=== PATIENT | female | born 1970 | race Caucasian/White ===

== ENCOUNTER → 2016-04-09 | Outpatient (CLI) | payer MEDICARE, OTHER ==
--- NOTE | 2016-04-09 15:46 | BD ---
EXAMINATION TYPE: MG DEXA axial skeleton. DATE OF EXAM: 04/09/2016 2:11 PM CLINICAL HISTORY: : no Height: 66 inches Weight: 205 FRAX RISK QUESTIONS: Alcohol (3 or more units per day): no Family History (Parent hip fracture): no Glucocorticoids (More than 3mos): seizure meds (Ex: prednisone, prednisolone, methylprednisolone, dexamethasone, and hydrocortisone). History of Fracture in Adulthood: no Secondary Osteoporosis: 1. Type 1 Diabetes: no 2. Hyperthyroidism: no 3. Menopause before 45: yes, surgical...about 2 years ago 4. Malnutrition: no 5. Chronic liver disease: no Rheumatoid Arthritis: no Current Tobacco Use: no RISK FACTORS HISTORY OF: History of Fracture: no Family History of Osteoporosis: unsure Drink Alcohol: no Active: yes Diet low in dairy products/other sources of calcium: no Postmenopausal woman: yes Take estrogen and/or progesterone medications: no Lost more than 2 inches in height since high school: no Frequent falls: no Poor Health: no Hyperparathyroidism: no Adrenal Insufficiency: no MEDICATIONS: Prednisone or other steroids: seizure meds Thyroid Medications: no Osteoporosis Medications: no Additional Medications: seizure meds, occasionally allergy meds EXAM MEASUREMENTS: Bone mineral densitometry was performed using the [employer] System. Bone mineral density as measured about the Lumbar spine is: ----- L1-L4(G/cm2): 1.215 T Score Values are as follows: ----- L2: -0.2 ----- L3: 0.2 ----- L4: 1.1 ----- L1-L4: 0.3 Bone mineral density has: Increased 2.9% since study of: 05/12/2013 Bone mineral density about the R hip (g/cm2): 0.768 Bone mineral density about the L hip (g/cm2): 0.811 T Score values are as follows: -----R Neck: -1.9 -----L Neck: -1.6 -----R Intertrochanter: -2.2 -----L Intertrochanter: -2.4 Bone mineral density has: remained the same 0.0% since study of: 05/12/2013 IMPRESSION: Normal (Values between +1 and -1 indicate normal bone mass) Lumbar Spine Osteopenia (T Score between -2.5 and -1 as noted by T score values Bilateral Hips There is slightly increased risk of fracture and the patient may be considered for treatment. Re-Screen 1-2 years. NOTE: T-SCORE=SD OF THE YOUNG ADULT MEAN.
== END | disposition home or self-care (01) ==
LOC: RADBDWWP 13:35
PROVIDERS: ATTEND Psychiatry & Neurology Neurology
DX: M85.80 Other specified disorders of bone density and structure, unspecified site (principal); T42.1X5A Adverse effect of iminostilbenes, initial encounter
CPT/HCPCS: 77080

== ENCOUNTER → 2016-06-12 | Outpatient (CLI) | payer MEDICARE, OTHER ==
--- NOTE | 2016-06-13 10:33 | XR ---
EXAMINATION TYPE: XR abdomen 1V DATE OF EXAM: 06/12/2016 3:57 PM COMPARISON: NONE HISTORY: Pain TECHNIQUE: Single supine KUB image of the abdomen is obtained FINDINGS: Small bowel demonstrates no evidence for dilatation or air fluid levels. Gas and fecal material is seen in non-distended colon. No convincing evidence for pneumoperitoneum. No unusual calcifications. The lung bases are clear. The osseous structures are intact. Curvature of the lumbar spine convex to the left. IMPRESSION: 1. Overall nonobstructive bowel gas pattern.
== END | disposition home or self-care (01) ==
LOC: RADXRYALE 15:10
PROVIDERS: ATTEND Family Medicine
DX: K59.00 Constipation, unspecified (principal); R10.31 Right lower quadrant pain
CPT/HCPCS: 74000

== ENCOUNTER 2016-06-15 12:13 | Emergency (ER) | payer MEDICARE, OTHER ==
--- NOTE | 2016-06-15 13:34 | ED ---
General Adult HPI - General Chief complaint: Abdominal Pain Stated complaint: Seizure Time Seen by Provider: 06/15/16 13:20 Source: patient, family, RN notes reviewed, old records reviewed Mode of arrival: ambulatory Limitations: no limitations - History of Present Illness Initial comments: Chief complaint and history of present illness a 45-year-old female here with the mother. The patient is mentally challenged and lives with her mother. Mother reports she's been having some abdominal pain for several days 2 days ago she had an x-ray as an outpatient. I reviewed the x-ray and the radiologist states that there is no overall nonobstructive bowel gas pattern. As read by Dr. Taylor. Mother states she gave her some mineral oil 2 nights ago and while in emergency room the patient had a large hard bowel movement. Patient reports is no pain now. - Related Data Home Medications Medication Instructions Recorded Confirmed LORazepam [Ativan] 1 mg PO Q6H PRN 06/15/16 06/15/16 Primidone [Mysoline] 250 mg PO BID 06/15/16 06/15/16 carBAMazepine [TEGretol XR] 400 mg PO Q12HR 06/15/16 06/15/16 levETIRAcetam [Keppra] 500 - 1,000 mg PO Q12HR 06/15/16 06/15/16 Allergies Allergy/AdvReac Type Severity Reaction Status Date / Time No Known Allergies Allergy Verified 06/15/16 13:21 Review of Systems ROS Statement: Those systems with pertinent positive or pertinent negative responses have been documented in the HPI. Review of systems patient's denying headache chest pain shows breath GI/ problems this time. At this time systems are reviewed no changes or problems. Past medical problems seizure disorder since he was a baby. Takes medications for that. History of hysterectomy. Family history no cancers. No apparent ALLERGIES patient nonsmoker nondrinker. ROS Other: All systems not noted in ROS Statement are negative. Past Medical History Past Medical History: Seizure Disorder History of Any Multi-Drug Resistant Organisms: None Reported Past Surgical History: Hysterectomy Past Psychological History: No Psychological Hx Reported Smoking Status: Never smoker Past Alcohol Use History: None Reported Past Drug Use History: None Reported General Exam - General Exam Comments Initial Comments: General: The patient is awake and alert, in no distress, and does not appear acutely ill. Not having abdominal pain at this time. She had a large bowel movement while in emergency room. Vital signs shows temperature 99.2 pulse 94 respiratory rate 16 pulse ox 90% room air blood pressure 125/78. Eye: Pupils are equal, round and reactive to light, extra-ocular movements are intact ; there is normal conjunctiva bilaterally. No signs of icterus. Ears, nose, mouth and throat: There are moist mucous membranes and no oral lesions. Neck: The neck is supple, there is no tenderness . Cardiovascular: There is a regular rate and rhythm. No murmur, rub or gallop is appreciated. Respiratory: Lungs are clear to auscultation, respirations are non-labored, breath sounds are equal. No wheezes, stridor, rales, or rhonchi. Gastrointestinal: Soft, non-distended, non-tender abdomen without masses or organomegaly noted. There is no rebound or guarding present. No CVA tenderness. Bowel sounds are unremarkable. Patient denies any abdominal pain at this time. She did have a large hard bowel movement while in emergency room. Back: Patient will flex twist and turn without evidence of discomfort no back pain. Musculoskeletal: Normal ROM, no tenderness, There is no pedal edema. There is no calf tenderness or swelling. Sensation intact. Pulses equal bilaterally 2+. Neurological: CN II-XII intact, There are no obvious motor or sensory deficits. Coordination appears grossly intact. Speech is normal. No neuro deficits noted. Patient does have a history of a seizure disorder. Her last seizure was many many years ago. Mother reports that she was a little irregular this morning with the patient reports she can here with her mother was saying. Skin: Skin is warm and dry and no rashes or lesions are noted. Limitations: no limitations Course Vital Signs 06/15/16 12:19 Temperature 99.2 F Pulse Rate 94 Respiratory 16 Rate Blood Pressure 125/78 O2 Sat by Pulse 98 Oximetry Medical Decision Making - Medical Decision Making Medical decision making; patient's urine is clean no signs of infection with 1 white 1 red. The patient be discharged home to care of mother. Mother was advised to use milk of magnesia to help with her bowel movements increase her fluid intake and bulky food type diet increase roughage. Advised follow-up with family physician return emergency room as needed. - Lab Data Lab Results 06/15/16 Range/Units 13:20 Urine Color Yellow Urine Appearance Cloudy H (Clear) Urine pH 6.5 (5.0-8.0) Ur Specific [place] 1.016 (1.001-1.035) Urine Protein Trace H (Negative) Urine Glucose (UA) Negative (Negative) Urine Ketones 2+ H (Negative) Urine Blood Negative (Negative) Urine Nitrite Negative (Negative) Urine Bilirubin Negative (Negative) Urine Urobilinogen <2.0 (<2.0) mg/dL Ur Leukocyte Esterase Negative (Negative) Urine RBC 1 (0-5) /hpf Urine WBC 1 (0-5) /hpf Ur Squamous Epith Cells 10 H (0-4) /hpf Urine Bacteria Few H (None) /hpf Urine Mucus Rare H (None) /hpf Disposition Clinical Impression: Abdominal cramping Disposition: HOME SELF-CARE Condition: Stable Instructions: Constipation (ED), High Fiber Diet (ED) Additional Instructions: Use milk of magnesia for constipation. Try to increase fluid intake. Increase roughage in diet. Follow-up with family physician Time of Disposition: 14:18
[2016-06-15 13:51] LABS: Appearance,Urine Cloudy (Clear); Bacteria,Urine Few /hpf; Bilirubin,Urine Negative (Negative); Glucose,Urine (UA) Negative (Negative); Ketones,Urine 2+ (Negative); Leukocyte Esterase,Urine Negative (Negative); Mucus,Urine Rare /hpf; Nitrite,Urine Negative (Negative); PH, Urine 6.5 (5.0-8.0); Particle Count 13756; Protein,Urine Trace (Negative); RBC,Urine 1 /hpf (0-5); Specific Gravity,Urine 1.016 (1.001-1.035); Squamous Epithelial Cell,Urine 10 /hpf (0-4); UA Billing (MACRO vs. MICRO) MICRO; Urobilinogen,Urine <2.0 mg/dL (<2.0); WBC,Urine 1 /hpf (0-5)
[2016-06-15 14:28] VITALS: BP 122/68; PULSE 78; RESP 20; TEMP 99
== END 2016-06-15 14:25 | disposition home or self-care (01) ==
LOC: EC 12:13
DX: R10.9 Unspecified abdominal pain (principal); G40.909 Epilepsy, unspecified, not intractable, without status epilepticus; Z90.710 Acquired absence of both cervix and uterus; Z79.899 Other long term (current) drug therapy
CPT/HCPCS: 81001; 87086; 99284

== ENCOUNTER 2016-06-16 16:57 | Inpatient (IN) | payer MEDICARE, OTHER ==
[2016-06-16] MEDS ORDERED: ONDANSETRON 4 MG/2 ML VIAL IVP STA (18:51)
[2016-06-16] MEDS ORDERED: SODIUM CHLORIDE 0.9% 1,000 ML IV STA (18:51)
[2016-06-16] MEDS ORDERED: FAMOTIDINE 20 MG/2 ML VIAL IV STA (18:51)
--- NOTE | 2016-06-16 19:01 | ED ---
General Adult HPI <Canelo Reece - Last Filed: 06/16/16 20:55> - General Source: patient, RN notes reviewed Mode of arrival: wheelchair Limitations: no limitations <Govind Shelton - Last Filed: 06/16/16 21:01> - General Chief complaint: Abdominal Pain Stated complaint: VOMITING Time Seen by Provider: 06/16/16 18:41 - History of Present Illness Initial comments: Patient 45 year old female who presents emergency room today with chief complaint of lower abdominal pain with symptoms of nausea vomiting. Patient does admit to one episode of vomiting yesterday. States expressing some lower abdominal cramping. Patient doesn't that she feels slightly better here in the emergency room. Patient does admit that symptoms started yesterday. Patient admits to history of seizures. Patient denies any other complaints or symptoms. Patient denies any recent fever, chills, shortness of breath, chest pain, back pain, abdominal pain, nausea or vomiting, numbness or tingling, dysuria or hematuria, constipation or diarrhea, headaches or visual changes, or any other complaints. (Govind Shelton) - Related Data Home Medications Medication Instructions Recorded Confirmed LORazepam [Ativan] 1 mg PO Q6H PRN 06/15/16 06/16/16 Primidone [Mysoline] 250 mg PO BID 06/15/16 06/16/16 carBAMazepine [TEGretol XR] 400 mg PO Q12HR 06/15/16 06/16/16 levETIRAcetam [Keppra] 500 - 1,000 mg PO Q12HR 06/15/16 06/16/16 Allergies Allergy/AdvReac Type Severity Reaction Status Date / Time No Known Allergies Allergy Verified 06/16/16 19:06 Review of Systems ROS Other: All systems not noted in ROS Statement are negative. <Canelo Reece - Last Filed: 06/16/16 20:55> ROS Other: All systems not noted in ROS Statement are negative. <Govind Shelton - Last Filed: 06/16/16 21:01> ROS Statement: Those systems with pertinent positive or pertinent negative responses have been documented in the HPI. Past Medical History Past Medical History: Seizure Disorder History of Any Multi-Drug Resistant Organisms: None Reported Past Surgical History: Hysterectomy Past Psychological History: No Psychological Hx Reported Smoking Status: Never smoker Past Alcohol Use History: None Reported Past Drug Use History: None Reported <Govind Shelton - Last Filed: 06/16/16 21:01> General Exam <Canelo Reece - Last Filed: 06/16/16 20:55> Limitations: no limitations <Govind Shelton - Last Filed: 06/16/16 21:01> - General Exam Comments Initial Comments: General: The patient is awake and alert, in no distress, and does not appear acutely ill. Eye: Pupils are equal, round and reactive to light, extra-ocular movements are intact. No nystagmus. There is normal conjunctiva bilaterally. No signs of icterus. Ears, nose, mouth and throat: There are moist mucous membranes and no oral lesions. Neck: The neck is supple, there is no tenderness or JVD. Cardiovascular: There is a regular rate and rhythm. No murmur, rub or gallop is appreciated. Respiratory: Lungs are clear to auscultation, respirations are non-labored, breath sounds are equal. No wheezes, stridor, rales, or rhonchi. Gastrointestinal: Soft, non-distended, non-tender abdomen without masses or organomegaly noted. There is no rebound or guarding present. No CVA tenderness. Bowel sounds are unremarkable. Musculoskeletal: Normal ROM, no tenderness. Strength 5/5. Sensation intact. Pulses equal bilaterally 2+. Neurological: A&O x 3. CN II-XII intact, There are no obvious motor or sensory deficits. Coordination appears grossly intact. Speech is normal. Skin: Skin is warm and dry and no rashes or lesions are noted. Psychiatric: Cooperative, appropriate mood & affect, normal judgment. (Govind Shelton) Medical Decision Making - Lab Data Result diagrams: 06/16/16 19:15 06/16/16 19:15 <Canelo Reece - Last Filed: 06/16/16 20:55> - Lab Data Result diagrams: 06/16/16 19:15 06/16/16 19:15 <Govind Shelton - Last Filed: 06/16/16 21:01> - Medical Decision Making The patient presents with abdominal discomfort persisting she, vomited once last night. The patient had x-rays that showed evidence of some air fluid levels. Patient had a CAT scan with IV and oral contrast which was interpreted as showing cholecystitis as well as an incarcerated right inguinal hernia causing a mechanical small bowel obstruction. The case was discussed with Dr. Cunningham on-call general surgeon. Medical clearance will be by Dr. Del Valle who was also notified. Dr. Reece (Canelo Reece) Patient's CT reviewed and does show a dilated gallbladder consistent with cholecystitis. Does show dilated small bowel with numerous air-fluid levels consistent with a distal mechanical small bowel obstruction. This appears to relate to incarcerated right inguinal hernia which appears to be a transition point as read by radiologist Dr. Castellon. Patient's labs reviewed does show 16 ,000 white count. Patient rested comfortably stretcher. He is been updated on the results will be admitted to consult surgery. (Govind Shelton) - Lab Data Lab Results 06/16/16 06/16/16 Range/Units 19:15 19:15 WBC 16.8 H (3.8-10.6) k/uL RBC 5.16 (3.80-5.40) m/uL Hgb 16.8 H (11.4-16.0) gm/dL Hct 49.7 H (34.0-46.0) % MCV 96.3 (80.0-100.0) fL MCH 32.7 (25.0-35.0) pg MCHC 33.9 (31.0-37.0) g/dL RDW 12.8 (11.5-15.5) % Plt Count 203 (150-450) k/uL Neutrophils % 86 % Lymphocytes % 6 % Monocytes % 6 % Eosinophils % 1 % Basophils % 0 % Neutrophils # 14.4 H (1.3-7.7) k/uL Lymphocytes # 1.0 (1.0-4.8) k/uL Monocytes # 1.0 (0-1.0) k/uL Eosinophils # 0.1 (0-0.7) k/uL Basophils # 0.0 (0-0.2) k/uL Sodium 138 (137-145) mmol/L Potassium 4.3 (3.5-5.1) mmol/L Chloride 90 L (98-107) mmol/L Carbon Dioxide 30 (22-30) mmol/L Anion Gap 18 mmol/L BUN 33 H (7-17) mg/dL Creatinine 1.16 H (0.52-1.04) mg/dL Est GFR (MDRD) Af Amer >60 (>60 ml/min/1.73 sqM) Est GFR (MDRD) Non-Af 50 (>60 ml/min/1.73 sqM) Glucose 122 H (74-99) mg/dL Calcium 10.0 (8.4-10.2) mg/dL Total Bilirubin 1.2 (0.2-1.3) mg/dL AST 24 (14-36) U/L ALT 23 (9-52) U/L Alkaline Phosphatase 97 (38-126) U/L Total Protein 8.0 (6.3-8.2) g/dL Albumin 4.6 (3.5-5.0) g/dL Amylase 36 (30-110) U/L Lipase 50 (23-300) U/L Disposition <Canelo Reece - Last Filed: 06/16/16 20:55> Time of Disposition: 21:00 <Govind Shelton - Last Filed: 06/16/16 21:01> Clinical Impression: SBO (small bowel obstruction), Incarcerated hernia, Cholecystitis Disposition: ADMITTED IP TO THIS [facility] Condition: Stable
[2016-06-16 19:29] LABS: Basophils % (A) 0 %; CH 33.2; CHCM 34.6; Eosinophils # (A) 0.1 k/uL (0-0.7); Eosinophils % (A) 1 %; HCT 49.7 % (34.0-46.0); HDW 2.17; HGB 16.8 gm/dL (11.4-16.0); Luc # (Auto) 0.17; Luc % (Auto) 1; Lymphocytes % (A) 6 %; MCH 32.7 pg (25.0-35.0); MCHC 33.9 g/dL (31.0-37.0); MCV 96.3 fL (80.0-100.0); Mean Platelet Volume 7.6; Monocytes % (A) 6 %; Neutrophils # (A) 14.4 k/uL (1.3-7.7); Neutrophils % (A) 86 %; RBC 5.16 m/uL (3.80-5.40); RDW 12.8 % (11.5-15.5); WBC 16.8 k/uL (3.8-10.6); WBC (Perox) 16.95
[2016-06-16 19:39] LABS: ALT 23 U/L (9-52); AST 24 U/L (14-36); Alkaline Phosphatase 97 U/L (38-126); Amylase 36 U/L (30-110); Anion Gap 18 mmol/L; Blood Urea Nitrogen 33 mg/dL (7-17); Carbon Dioxide 30 mmol/L (22-30); Chloride 90 mmol/L (98-107); Glucose 122 mg/dL (74-99); Non-African American GFR(MDRD) 50 (>60 ml/min/1.73 sqM); Potassium 4.3 mmol/L (3.5-5.1); Sodium 138 mmol/L (137-145); Total Bilirubin 1.2 mg/dL (0.2-1.3)
--- NOTE | 2016-06-16 19:39 | XR ---
EXAMINATION TYPE: XR KUB DATE OF EXAM: 06/16/2016 7:34 PM COMPARISON: 06/12/2016 HISTORY: Abdominal pain TECHNIQUE: 2 views FINDINGS: There are some intestinal air-fluid levels in the mid abdomen. There is no sign of free air . There is a relative lack of large bowel gas. Lung bases are clear of consolidation. IMPRESSION: There are some dilated small bowel loops with air-fluid levels consistent with a small ema wel mechanical obstruction or severe small bowel ileus. This appears new compared to last exam.
[2016-06-16] MEDS ORDERED: RX INFO: IV CONTRAST WAS GIVEN 1 EACH MISC MISCELLANE PRN (19:41)
[2016-06-16] MEDS ORDERED: LORazepam 2 MG/ML SYRINGE IV STA (19:51)
--- NOTE | 2016-06-16 20:36 | CT ---
EXAMINATION TYPE: CT abdomen pelvis w con DATE OF EXAM: 06/16/2016 8:11 PM COMPARISON: NONE HISTORY: Mid abdominal pain with constipation. CT DLP: 1175.40 mGycm Automated exposure control for dose reduction was used. TECHNIQUE: Helical acquisition of images was performed from the lung bases through the pelvis. CONTRAST: Performed without Oral Contrast and with IV Contrast, patient injected with 80 mL of Visipaque 320. FINDINGS: Lung bases are clear. There is no pleural effusion. Liver shows no focal defect. Gallbladder is dilat ed and measures 6.5 cm in diameter. There is no pancreatic mass. Spleen appears normal. There are rowena e dilated loops of small bowel throughout the abdomen. There is a right inguinal hernia that contains small bowel. This is probably the site of transition. There is incarceration. The large bowel is not dilated. There are some spondylotic changes in the lumbar spine with L4-5 disc space narrowing. There is no adrenal mass. Kidneys show satisfactory contrast opacification. There is no hydronephrosi s. The terminal ileum is not dilated. IMPRESSION: THERE IS A DILATED GALLBLADDER CONSISTENT WITH CHOLECYSTITIS. DILATED SMALL BOWEL WITH NUMEROUS AIR-FLUID LEVELS CONSISTENT WITH DISTAL MECHANICAL SMALL BOWEL OBST RUCTION . THIS APPEARS TO RELATE TO INCARCERATED RIGHT INGUINAL HERNIA WHICH APPEARS TO BE THE TRANSI TION POINT.
[2016-06-16] MEDS ORDERED: SODIUM CHLORIDE 0.9% 500 ML IV STA (20:48)
[2016-06-16] MEDS ORDERED: SODIUM CHLORIDE 0.9% 1,000 ML IV ONE (21:01)
[2016-06-16] MEDS ORDERED: ONDANSETRON 4 MG/2 ML VIAL IVP PRN (21:01)
[2016-06-16] MEDS ORDERED: NALOXONE 0.4 MG/ML 1 ML VIAL IV PRN (21:01)
[2016-06-16] MEDS ORDERED: LORazepam 2 MG/ML SYRINGE IV PRN (21:01)
[2016-06-16] MEDS ORDERED: carBAMazepine 400 MG TAB.ER.12H PO STA (21:13)
[2016-06-16] MEDS ORDERED: PRIMIDONE 250 MG TAB PO STA (21:13)
[2016-06-16] MEDS ORDERED: levETIRAcetam 500 MG TAB PO STA (21:14)
[2016-06-17 04:16] VITALS: BMI 32.3
[2016-06-17 08:21] LABS: ALT 27 U/L (9-52); AST 22 U/L (14-36); Alkaline Phosphatase 77 U/L (38-126); Anion Gap 16 mmol/L; Blood Urea Nitrogen 33 mg/dL (7-17); Carbon Dioxide 22 mmol/L (22-30); Chloride 99 mmol/L (98-107); Glucose 103 mg/dL (74-99); Non-African American GFR(MDRD) >60 (>60 ml/min/1.73 sqM); Potassium 3.8 mmol/L (3.5-5.1); Sodium 137 mmol/L (137-145); Total Bilirubin 1.1 mg/dL (0.2-1.3); Total Protein 6.8 g/dL (6.3-8.2)
[2016-06-17 08:26] LABS: Basophils % (A) 0 %; CH 33.1; CHCM 34.3; Eosinophils % (A) 0 %; HCT 44.3 % (34.0-46.0); HDW 2.13; HGB 14.9 gm/dL (11.4-16.0); Luc # (Auto) 0.22; Luc % (Auto) 2; Lymphocytes % (A) 8 %; MCH 32.6 pg (25.0-35.0); MCHC 33.6 g/dL (31.0-37.0); Mean Platelet Volume 7.9; Monocytes # (A) 0.9 k/uL (0-1.0); Monocytes % (A) 7 %; Neutrophils # (A) 10.7 k/uL (1.3-7.7); Neutrophils % (A) 83 %; RBC 4.56 m/uL (3.80-5.40); RDW 12.9 % (11.5-15.5); WBC 12.8 k/uL (3.8-10.6); WBC (Perox) 12.88
--- NOTE | 2016-06-17 14:11 | XR ---
EXAMINATION TYPE: XR chest 1V portable DATE OF EXAM: 06/17/2016 1:50 PM CLINICAL HISTORY: CHF, difficulty in breathing. TECHNIQUE: Single AP portable frontal upright view of the chest is obtained. COMPARISON: None FINDINGS: Somewhat low lung volumes are seen. Mild central vascular congestion is felt present. Ther e is no focal air space opacity, pleural effusion, or pneumothorax seen. The cardiac silhouette size is within normal limits. The osseous structures are intact. IMPRESSION: Perhaps mild central vascular congestion. No suspicious focal infiltrate.
--- NOTE | 2016-06-17 14:22 | P.GSCN ---
<Zulma Olmstead Piotr - Last Filed: 06/17/16 14:13> History of Present Illness Consult date: 06/17/16 Reason for Consult: Abdominal pain History of present illness: A 45-year-old female presented on the day of admission to the emergency room on June 16 with a chief complaint of developing lower abdominal pain with a sensation of nausea with emesis. Patient states she did vomit once before coming into the emergency room. Patient stated there was a lower abdominal cramping sensation. Patient stated the symptoms started the day before. Patient states she has not had a bowel movement is not passing gas to the rectum is not belching. Did note the white count was elevated in the emergency room 16.8. CAT scan of the abdomen pelvis with IV and oral contrast was obtained did show cholecystitis as well as an incarcerated right inguinal hernia causing a mechanical small bowel obstruction. Patient is being seen at the request of the attending for surgical eval for the above-mentioned findings. Subsequently the patient has been admitted to the services of the attending with a surgical eval request. Dr. Cunningham did discuss with the patient and the patient's family the plan of care patient will need a surgical intervention to address the incarcerated right inguinal hernia and keep patient on bowel rest with IV hydration questions were answered. They were able to verbalize an understanding of the plan of care. Patient continues to report having abdominal discomfort in the right lower abdominal wall patient has no significant past surgical history except for a hysterectomy Review of Systems Essentially unremarkable except as mentioned in the present illness Past Medical History Past Medical History: Seizure Disorder Additional Past Medical History / Comment(s): mentally handicapped History of Any Multi-Drug Resistant Organisms: None Reported Past Surgical History: Hysterectomy Past Anesthesia/Blood Transfusion Reactions: No Reported Reaction Past Psychological History: No Psychological Hx Reported Smoking Status: Never smoker Past Alcohol Use History: None Reported Past Drug Use History: None Reported - Past Family History Mother Family Medical History: No Reported History Medications and Allergies Home Medications Medication Instructions Recorded Confirmed Type RX: LORazepam [Ativan] 1 mg PO Q6H PRN 06/15/16 06/16/16 History RX: Primidone [Mysoline] 250 mg PO BID 06/15/16 06/16/16 History RX: carBAMazepine [TEGretol XR] 400 mg PO Q12HR 06/15/16 06/16/16 History RX: levETIRAcetam [Keppra] 500 - 1,000 mg PO Q12HR 06/15/16 06/16/16 History Allergies Allergy/AdvReac Type Severity Reaction Status Date / Time No Known Allergies Allergy Verified 06/16/16 19:06 Surgical - Exam Vital Signs Temp Pulse Resp BP Pulse Ox 98.3 F 104 H 18 117/77 96 06/16/16 17:44 06/16/16 17:44 06/16/16 17:44 06/16/16 17:44 06/16/16 17:44 GENERAL APPEARANCE: 45-year-old female patient is alert, oriented, in no acute distress. Sitting up in bed VITAL SIGNS: Reviewed HEENT: Head is normocephalic and atraumatic. Pupils are equal and reactive. The nares are patent. Oropharynx is clear without lesions. NECK: Supple without lymphadenopathy. Traches midline. HEART: S1, S2. Regular rate and rhythm. Denying chest pain no murmur LUNGS: No crackles or wheezes are heard. Essentially clear adequate air movement on room air no cough noted ABDOMEN: Soft, slight tenderness, nondistended with good bowel sounds. No peritoneal signs. No palpable organomegaly or masses. Bowel tones present not passing any rectal gas or flatus is not belching remains nothing by mouth EXTREMITIES: Normal skin color and turgor. No cyanosis, rash, ulceration, clubbing or edema. Radial pedal pulses are 2/4 bilaterally. NEUROLOGICAL: No focal deficits. Strength and sensation are grossly intact. Results - Labs 06/17/16 07:06 06/17/16 07:06 Abnormal Lab Results - Last 24 Hours (Table) 06/17/16 06/17/16 Range/Units 07:06 07:06 WBC 12.8 H (3.8-10.6) k/uL Neutrophils # 10.7 H (1.3-7.7) k/uL BUN 33 H (7-17) mg/dL Glucose 103 H (74-99) mg/dL Diabetes panel 06/17/16 Range/Units 07:06 Sodium 137 (137-145) mmol/L Potassium 3.8 (3.5-5.1) mmol/L Chloride 99 (98-107) mmol/L Carbon Dioxide 22 (22-30) mmol/L BUN 33 H (7-17) mg/dL Creatinine 0.77 (0.52-1.04) mg/dL Glucose 103 H (74-99) mg/dL Calcium 9.0 (8.4-10.2) mg/dL AST 22 (14-36) U/L ALT 27 (9-52) U/L Alkaline Phosphatase 77 (38-126) U/L Total Protein 6.8 (6.3-8.2) g/dL Albumin 3.7 (3.5-5.0) g/dL Calcium panel 06/17/16 Range/Units 07:06 Calcium 9.0 (8.4-10.2) mg/dL Albumin 3.7 (3.5-5.0) g/dL Pituitary panel 06/17/16 Range/Units 07:06 Sodium 137 (137-145) mmol/L Potassium 3.8 (3.5-5.1) mmol/L Chloride 99 (98-107) mmol/L Carbon Dioxide 22 (22-30) mmol/L BUN 33 H (7-17) mg/dL Creatinine 0.77 (0.52-1.04) mg/dL Glucose 103 H (74-99) mg/dL Calcium 9.0 (8.4-10.2) mg/dL Adrenal panel 06/17/16 Range/Units 07:06 Sodium 137 (137-145) mmol/L Potassium 3.8 (3.5-5.1) mmol/L Chloride 99 (98-107) mmol/L Carbon Dioxide 22 (22-30) mmol/L BUN 33 H (7-17) mg/dL Creatinine 0.77 (0.52-1.04) mg/dL Glucose 103 H (74-99) mg/dL Calcium 9.0 (8.4-10.2) mg/dL Total Bilirubin 1.1 (0.2-1.3) mg/dL AST 22 (14-36) U/L ALT 27 (9-52) U/L Alkaline Phosphatase 77 (38-126) U/L Total Protein 6.8 (6.3-8.2) g/dL Albumin 3.7 (3.5-5.0) g/dL Assessment and Plan Plan: Impression Present on admission right lower abdominal pain with a sensation of nausea suspect due to incarcerated right inguinal hernia causing a mechanical small bowel obstruction Present on admission CAT scan of the abdomen pelvis with IV and oral contrast shows cholecystitis Present on admission CAT scan of the abdomen pelvis with IV and oral contrast shows a incarcerated right inguinal hernia causing a mechanical small bowel obstruction History of a seizure disorder Present on admission leukocytosis the low-grade temp Plan Continue IV hydration Surgical approach to address incarcerated right inguinal hernia defer to the timing by surgical service Bowel rest keep nothing by mouth Cholecystitis will be addressed in the outpatient setting DVT and GI prophylaxis Pain control The surgical plan of care was discussed with the patient and family with the surgeon with questions answered Thank you for allowing us to participate in the surgical management of your patient will follow The above dictated assessment and findings were discussed with dr Cunningham. Impression and the plan of care have been dictated as directed. Zulma Olmstead nurse practitioner acting as a scribe for Marisa <Lynda Cunningham N - Last Filed: 07/20/16 19:14> Surgical - Exam Vital Signs Temp Pulse Resp BP Pulse Ox 98.3 F 104 H 18 117/77 96 06/16/16 17:44 06/16/16 17:44 06/16/16 17:44 06/16/16 17:44 06/16/16 17:44 Results - Labs 06/25/16 08:31 06/25/16 08:31 Assessment and Plan (1) Inguinal hernia with strangulation Status: Acute (2) S/P small bowel resection Status: Acute (3) S/P inguinal hernia repair Status: Acute (4) Incarcerated hernia Status: Acute (5) SBO (small bowel obstruction) Status: Acute (6) History of seizures Status: Chronic Plan: Agree with above.
[2016-06-17] MEDS: levETIRAcetam IV 500 MG in SODIUM CHLORIDE 0.9% 100 ML IVPB SCH ×2 (15:49→22:22)
[2016-06-17] MEDS: HEPARIN SODIUM,PORCINE 5,000 UNIT/ML 1 ML VIAL SQ SCH (15:50)
[2016-06-17] MEDS: SODIUM CHLORIDE 0.9% 1,000 ML IV SCH (15:50)
[2016-06-17] MEDS: FAMOTIDINE 20 MG/2 ML VIAL IV SCH ×2 (15:50→22:24)
[2016-06-17] MEDS: LEVOFLOXACIN 500MG-D5W PMX 500 MG in DEXTROSE/WATER 1 100ML.BAG IVPB SCH (17:12)
--- NOTE | 2016-06-17 18:28 | HP ---
DATE OF ADMISSION: 06/16/2016 CHIEF COMPLAINT: Abdominal discomfort and constipation and vomiting. HISTORY OF PRESENT ILLNESS: This 45-year-old woman with a past history of seizure disorder, history of mentally handicapped being followed by Dr. Joseph Shin in the outpatient setting previously had a hysterectomy for apparent cancer. The patient presented to [facility] with complaints of abdominal pain and nausea and vomiting. The patient also constipated. The patient also vomiting. The patient had a CAT scan of the abdomen and pelvis at the time of admission showed dilated gallbladder consistent with cholecystitis and as well as dilated small bowel with numerous air fluid levels consistent with distal mechanical obstruction, small bowel obstruction which is probably related to incarcerated right inguinal hernia which appears to be the transition point. The patient admitted for further evaluation. Currently the patient is alert but unable to give coherent history and most of the history taken from my discussion with staff as well as discussion with the family at the bedside and review of the chart. No history of trauma. PAST MEDICAL HISTORY: History of seizure disorder and mentally handicapped, hysterectomy. MEDICATIONS: 1. Keppra 500 or 1000 b.i.d. 2. Tegretol-XL 400 mg b.i.d. 3. Mysoline 250 mg daily. 4. Ativan 1 mg q6h p.r.n. ALLERGIES: None. FAMILY HISTORY: No history of heart disease or strokes in the family per chart. SOCIAL HISTORY: No history of smoking. No history of alcohol. Review of systems could not be taken. PHYSICAL EXAMINATION: Pulse is 88, blood pressure 127/62, respiratory rate 16, temperature 97.5, pulse ox 93% on room air. HEENT: Conjunctivae normal. Oral mucosa moist. NECK: No jugular venous distention. No carotid bruit. No lymph node enlargement. CARDIOVASCULAR: S1, S2 muffled. No S3, no S4. RESPIRATORY: Breath sounds diminished at the bases. No rhonchi. No crackles. No bronchial sounds. ABDOMEN: Soft. Mild diffuse distention. Mild diffuse tenderness on palpation. No guarding or rigidity. Bowel sounds diminished. No ascites. No mass palpable. No bruits. LEGS: No edema. No swelling. CENTRAL NERVOUS SYSTEM: Higher functions as mentioned earlier. Otherwise moves all 4 limbs, unable to cooperative with a full neurologic exam. SKIN: No ulcer, rash or bleeding. LYMPHATICS: No lymph nodes palpable in the neck, axillae or groin. Joints: No active deforming arthropathy. Labs: WBC 16.2, hemoglobin 16.8. Creatinine is 1.16. Glucose 22. ASSESSMENT: 1. Abdominal distention, constipation, vomiting, possibly acute small bowel obstruction secondary to incarcerated right inguinal hernia. 2. Dilated gallbladder rule out acute cholecystitis. 3. Increased WBC. 4. Dehydration with acute renal failure, mild with prerenal factors present on admission. 5. Increased random blood sugar. 6. History of hysterectomy for uterine cancer. 7. History of seizure disorder. 8. Mentally challenged. 9. CODE STATUS: FULL CODE. RECOMMENDATIONS AND DISCUSSION: In this 46-year-old woman who presented with multiple complex medical issues, we will monitor the patient closely. Continue the current medications and continue symptomatic treatment. We will obtain a surgical consultation for continued monitoring and definite intervention. Dr. Cunningham has been consulted. Otherwise, would recommend resuming the previous medication while the patient is p.o. otherwise, IV medication will be substituted. Ativan p.r.n. may be used. DVT prophylaxis. Empiric antibiotics also will be given. Cultures are ordered. Prognosis guarded because of multiple complex medical issues. Discussed with the family. Further recommendations to follow. A copy of dictation being forwarded to Dr. Shin who is the primary care physician.
[2016-06-17] MEDS ORDERED: carBAMazepine 400 MG TAB.ER.12H PO SCH (21:00)
[2016-06-17] MEDS ORDERED: levETIRAcetam 500 MG TAB PO SCH (21:00)
[2016-06-17] MEDS: LORazepam 2 MG/ML SYRINGE IV PRN (23:50)
[2016-06-18] MEDS: PRIMIDONE 250 MG TAB PO SCH ×3 (00:08→22:43)
[2016-06-18] MEDS: carBAMazepine 200 MG TAB PO SCH ×5 (00:08→22:43)
[2016-06-18] MEDS: HEPARIN SODIUM,PORCINE 5,000 UNIT/ML 1 ML VIAL SQ SCH ×4 (00:09→23:38)
[2016-06-18] MEDS: HYDROmorphone 1 MG/ML 1 ML SYRINGE IV PRN ×4 (02:51→23:38)
[2016-06-18] MEDS: SODIUM CHLORIDE 0.9% 1,000 ML IV SCH ×4 (05:51→10:50)
--- NOTE | 2016-06-18 07:24 | P.PN ---
Progress Note - Text Patient re-evaluated this evening. Please see full dictated consultation. Nasogastric tube decompression recommended given severity of bowel obstruction. We'll need surgical intervention pending cardiac risk assessment.
[2016-06-18 08:30] LABS: Basophils % (A) 0 %; CH 32.8; CHCM 34.8; Eosinophils % (A) 0 %; HCT 39.6 % (34.0-46.0); HDW 2.24; HGB 13.6 gm/dL (11.4-16.0); Luc # (Auto) 0.26; Luc % (Auto) 3; Lymphocytes # (A) 1.2 k/uL (1.0-4.8); Lymphocytes % (A) 14 %; MCH 32.5 pg (25.0-35.0); MCHC 34.3 g/dL (31.0-37.0); MCV 94.6 fL (80.0-100.0); Mean Platelet Volume 7.9; Monocytes # (A) 0.7 k/uL (0-1.0); Monocytes % (A) 9 %; Neutrophils # (A) 6.4 k/uL (1.3-7.7); Neutrophils % (A) 74 %; RBC 4.18 m/uL (3.80-5.40); RDW 12.8 % (11.5-15.5); WBC 8.7 k/uL (3.8-10.6)
[2016-06-18] MEDS: levETIRAcetam IV 500 MG in SODIUM CHLORIDE 0.9% 100 ML IVPB SCH (08:33)
[2016-06-18] MEDS: FAMOTIDINE 20 MG/2 ML VIAL IV SCH ×2 (08:34→20:08)
[2016-06-18 08:51] LABS: Anion Gap 16 mmol/L; Blood Urea Nitrogen 26 mg/dL (7-17); Calcium 8.5 mg/dL (8.4-10.2); Carbon Dioxide 20 mmol/L (22-30); Chloride 105 mmol/L (98-107); Glucose 72 mg/dL (74-99); Non-African American GFR(MDRD) >60 (>60 ml/min/1.73 sqM); Potassium 3.4 mmol/L (3.5-5.1); Sodium 141 mmol/L (137-145)
[2016-06-18] MEDS: LEVOFLOXACIN 500MG-D5W PMX 500 MG in DEXTROSE/WATER 1 100ML.BAG IVPB SCH (12:51)
[2016-06-18 13:07] LABS: Appearance,Urine Cloudy (Clear); Bacteria,Urine Occasional /hpf; Bilirubin,Urine 1+ (Negative); Glucose,Urine (UA) Negative (Negative); Ketones,Urine 4+ (Negative); Leukocyte Esterase,Urine Negative (Negative); Mucus,Urine Rare /hpf; Nitrite,Urine Negative (Negative); Particle Count 15851; Protein,Urine 1+ (Negative); RBC,Urine 3 /hpf (0-5); Specific Gravity,Urine 1.031 (1.001-1.035); Squamous Epithelial Cell,Urine 5 /hpf (0-4); UA Billing (MACRO vs. MICRO) MICRO; WBC,Urine 5 /hpf (0-5)
--- NOTE | 2016-06-18 15:20 | XR ---
EXAMINATION TYPE: XR abdomen 1V DATE OF EXAM: 06/18/2016 1:29 PM CLINICAL DATA: 45-year-old female bowel obstruction, follow-up, [facility] COMPARISON: 06/16/2016 FINDINGS: NG tube remains in place. No evidence for free intraperitoneal air. Redemonstrated differential air-fluid levels with dilated small bowel loops measuring up to 4.[address] amount of scattered colonic gas is present, not significantly changed from prior. IMPRESSION: Findings suggest continued high-grade small bowel obstruction. No free air. Query any interval reduct ion of the patient's right inguinal hernia.
--- NOTE | 2016-06-18 16:25 | P.PN ---
Subjective 45 -year-old female being seen with the attending this morning. Dr. Cunningham did discuss the surgical plan of care with the mother at the bedside as well as the patient. Questions answered. Patient did undergo a x-ray of the abdomen this morning it's suggest dilated small bowel loops suspect high-grade small bowel obstruction no free air. A 12-lead EKG has been requested. Surgery is tentatively scheduled for June 20 pending cardiac clearance Objective - Vital Signs Vital signs: Vital Signs Temp 98.2 F 06/18/16 07:00 Pulse 97 06/18/16 15:27 Resp 16 06/18/16 15:27 BP 125/80 06/18/16 07:00 Pulse Ox 92 L 06/18/16 07:00 Intake & Output 06/17/16 06/18/16 06/18/16 18:59 06:59 18:59 Intake Total 1200 Output Total 550 1350 1800 Balance 650 -1350 -1800 Weight 90.718 kg 90.718 kg Intake: Intake, IV Titration 1200 Amount Levofloxacin 500Mg-D5w 100 Pmx 500 mg In Dextrose/ Water 1 100ml.bag @ 100 mls/hr IVPB Q24H JACY Rx#: [id number] Sodium Chloride 0.9% 1, 700 000 ml @ 100 mls/hr IV . Q10H JACY Rx#:[id number] levETIRAcetam IV 500 mg 400 In Sodium Chloride 0.9% 100 ml @ 400 mls/hr IVPB Q12HR JACY Rx#:[id number] Output: Gastric Drainage 1350 Urine 550 1800 Other: # Voids 2 2 - Exam Physical exam 45-year-old female sitting up in bed mother at bedside no new events pleasant cooperative oriented 3 Lungs essentially clear adequate air movement Heart S1-S2 audible regular Abdomen nasogastric tube in place soft slight tenderness persist bowel tones present passing any gas no stool reports having slight abdominal discomfort not distended Extremities no edema noted - Labs CBC & Chem 7: 06/18/16 07:58 06/18/16 07:58 Labs: Abnormal Lab Results - Last 24 Hours (Table) 06/18/16 06/18/16 Range/Units 07:58 12:15 Potassium 3.4 L (3.5-5.1) mmol/L Carbon Dioxide 20 L (22-30) mmol/L BUN 26 H (7-17) mg/dL Glucose 72 L (74-99) mg/dL Urine Appearance Cloudy H (Clear) Urine Protein 1+ H (Negative) Urine Ketones 4+ H (Negative) Urine Bilirubin 1+ H (Negative) Ur Squamous Epith Cells 5 H (0-4) /hpf Urine Bacteria Occasional H (None) /hpf Urine Mucus Rare H (None) /hpf Assessment and Plan Plan: Impression Present on admission right lower abdominal pain with a sensation of nausea suspect due to incarcerated right inguinal hernia causing a mechanical small bowel obstruction Present on admission CAT scan of the abdomen pelvis with IV and oral contrast shows cholecystitis Present on admission CAT scan of the abdomen pelvis with IV and oral contrast shows a incarcerated right inguinal hernia causing a mechanical small bowel obstruction History of a seizure disorder Present on admission leukocytosis the low-grade temp Abdominal x-ray on the fourth suggest high-grade small bowel obstruction no free air Plan Check the 12-lead EKG Continue IV hydration Surgical approach to address incarcerated right inguinal hernia defer to the timing by surgical service Bowel rest keep nothing by mouth Cholecystitis will be addressed in the outpatient setting DVT and GI prophylaxis Pain control The surgical plan of care was discussed with the patient and family with the surgeon with questions answered Surgery tentatively scheduled for June 20 Thank you for allowing us to participate in the surgical management of your patient will follow The above dictated assessment and findings were discussed with dr Cunningham. Impression and the plan of care have been dictated as directed. Zulma Olmstead nurse practitioner acting as a scribe for Marisa
--- NOTE | 2016-06-18 18:24 | PN ---
DATE OF SERVICE: 06/18/2016 This 45-year-old woman was admitted with abdominal distention and constipation with features of acute small bowel obstruction secondary to right inguinal hernia, also had dilated gallbladder. Patient has NG tube. Surgery is following the patient closely at this time. Otherwise, a baseline chest x-ray showed no suspicious focal infiltrate. Patient is complaining of dry mouth. The patient is mentally challenged. Most of history taken through my discussion with staff, review of the chart and as well as discussion with multiple family members at the bedside. PAST MEDICAL HISTORY: Reviewed. Current medications are: 1. Tegretol 200 mg p.o. daily. 2. Pepcid 20 mg IV b.i.d. 3. Heparin 5000 subcu daily. 4. Dilaudid 1 mg q.2 p.r.n. 5. Keppra 500 mg IV b.i.d. 6. Levaquin 500 mg daily. 7. Ativan 0.5 q.6 p.r.n. 8. Narcan. 9. Zofran. 10. Mysoline. PHYSICAL EXAMINATION: Pulse is 97, blood pressure 125/80, respiratory rate 16, temperature 98.2, pulse ox 92% on room air. HEENT: Conjunctivae normal. Oral mucosa moist. NECK: No jugular venous distention. No carotid bruit. No lymph node enlargement. CARDIOVASCULAR: S1 and S2, muffled. No S3, no S4. RESPIRATORY: Breath sounds diminished at the bases. No rhonchi, no crackles. ABDOMEN: Soft. Mild diffuse distention. Mild diffuse discomfort on palpation, no guarding. No rigidity. No mass palpable. No ascites. Bowel sounds diminished. LEGS: No edema, no swelling. NERVOUS SYSTEM: No focal deficits. LABS: WBC 8.3, hemoglobin 13.7. Sodium is 140, potassium 3.4. UA noted. ASSESSMENT: 1. Abdominal distention, constipation, vomiting and as well as acute small bowel obstruction, possibly secondary to incarcerated right inguinal hernia. 2. Dilated gallbladder, rule out acute cholecystitis. 3. Increased WBC. 4. Dehydration with acute renal failure, possibly prerenal factors present on admission. 5. Increased random blood sugar. 6. History of hysterectomy uterine cancer. 7. History of seizure disorder. 8. Mentally challenged. 9. CODE STATUS: FULL CODE. RECOMMENDATIONS AND DISCUSSION: This 45-year-old woman who presented with multiple complex medical issues, we will monitor the patient closely. Continue with current medications, continue with NG tube. Closely follow with Surgery. DVT prophylaxis and symptomatic treatment. Empiric antibiotics have been initiated. Otherwise, continue to monitor. Continue with IV Keppra and further recommendations. Will use p.r.n. Ativan. Prognosis guarded. Closely follow with Surgery. Discussed with the family who understands and agrees. Further recommendations to follow.
--- NOTE | 2016-06-18 19:21 | P.CNNES ---
History of Present Illness Consult date: 06/18/16 History of Present Illness: The patient is a 45-year-old mentally handicapped woman with epilepsy. History is obtained from the chart and from her mother was at the bedside. The patient has had seizures since the age of 6. She has been on Tegretol and Mysoline since that time. Her mother reports that she has a seizure about once a year. The seizures are apparently partial loss of awareness. The patient is admitted to the hospital with bowel obstruction. She had complaints of abdominal pain nausea and vomiting. CAT scan of the abdomen showed cholecystitis as well as dilated small bowel. He is scheduled for surgery in 48 hours. Her Tegretol and her Mysoline have been kept on hold because she cannot take any oral intake. He has also been taking Keppra recently at home in the hopes of switching her from Tegretol and Mysoline onto Keppra. Review of Systems ROS unobtainable: due to mental status Past Medical History Past Medical History: Seizure Disorder Additional Past Medical History / Comment(s): mentally handicapped History of Any Multi-Drug Resistant Organisms: None Reported Past Surgical History: Hysterectomy Past Anesthesia/Blood Transfusion Reactions: No Reported Reaction Past Psychological History: No Psychological Hx Reported Smoking Status: Never smoker Past Alcohol Use History: None Reported Past Drug Use History: None Reported - Past Family History Mother Family Medical History: No Reported History Medications and Allergies Home Medications Medication Instructions Recorded Confirmed Type LORazepam [Ativan] 1 mg PO Q6H PRN 06/15/16 06/16/16 History Primidone [Mysoline] 250 mg PO BID 06/15/16 06/16/16 History carBAMazepine [TEGretol XR] 400 mg PO Q12HR 06/15/16 06/16/16 History levETIRAcetam [Keppra] 500 - 1,000 mg PO Q12HR 06/15/16 06/16/16 History Allergies Allergy/AdvReac Type Severity Reaction Status Date / Time No Known Allergies Allergy Verified 06/16/16 19:06 Physical Examination - Vital Signs Vital Signs: Vital Signs Temp Pulse Resp BP Pulse Ox 06/18/16 15:27 97 16 06/18/16 15:00 98.6 F 93 16 118/77 93 L 06/18/16 08:00 97 16 06/18/16 07:00 98.2 F 97 16 125/80 92 L 06/17/16 22:28 98.8 F 103 H 16 122/77 91 L 06/17/16 22:00 98.9 F 86 16 122/75 98 Intake and Output 06/18/16 06/18/16 06/18/16 06:59 14:59 22:59 Output Total 900 900 Balance -900 -900 Output: Urine 900 900 Other: # Voids 2 2 Weight 90.718 kg Patient Weight 06/19/16 06:59 Weight 90.718 kg - Constitutional General appearance: average body habitus - EENT EENT: PERRL, vision intact - Respiratory Respiratory: lungs clear - Cardiovascular Cardiovascular: regular rate, normal S1, normal S2 - Neurologic Mental status she was awake she was able to answer simple questions she did have moderate impairment of cognitive function. Cranial nerve examination: EOMI, VFF, V1/V2/V3 grossly intact, face symmetric, tongue midline Speech examination: intact Sensorimotor examination: intact Detailed motor examination: grossly full strength in all extremities - Psychiatric Psychiatric: cooperative Results - Laboratory Findings CBC and BMP: 06/18/16 07:58 06/18/16 07:58 Abnormal Lab Findings: Abnormal Labs 06/17/16 06/17/16 06/18/16 07:06 07:06 07:58 WBC 12.8 H Neutrophils # 10.7 H Potassium 3.4 L Carbon Dioxide 20 L BUN 33 H 26 H Glucose 103 H 72 L Urine Appearance Urine Protein Urine Ketones Urine Bilirubin Ur Squamous Epith Cells Urine Bacteria Urine Mucus 06/18/16 12:15 WBC Neutrophils # Potassium Carbon Dioxide BUN Glucose Urine Appearance Cloudy H Urine Protein 1+ H Urine Ketones 4+ H Urine Bilirubin 1+ H Ur Squamous Epith Cells 5 H Urine Bacteria Occasional H Urine Mucus Rare H Assessment and Plan (1) Cholecystitis Status: Acute Code(s): K81.9 - CHOLECYSTITIS, UNSPECIFIED (2) SBO (small bowel obstruction) Status: Acute Code(s): K56.69 - OTHER INTESTINAL OBSTRUCTION (3) History of seizures Status: Chronic Code(s): Z87.898 - PERSONAL HISTORY OF OTHER SPECIFIED CONDITIONS Plan: The patient is a 46-year-old woman who was mentally handicapped and has a history of seizure disorder. She has been on Tegretol and Mysoline for numerous years. Recently she was also started on Keppra in the hopes of taking her off Mysoline and Tegretol. The patient is admitted to the hospital with small bowel obstruction and cholecystitis. She will be having surgery in 2 days. She can take nothing by mouth and cannot take her Tegretol or Mysoline. Recommend increasing Keppra dose to 1000 mg every 12 IV piggyback and we will check Keppra level in a.m. and adjust accordingly.
[2016-06-18] MEDS: levETIRAcetam IV 1,000 MG in SODIUM CHLORIDE 0.9% 100 ML IVPB SCH ×2 (20:09→23:10)
[2016-06-19] MEDS: LORazepam 2 MG/ML SYRINGE IV PRN (00:29)
[2016-06-19] MEDS: SODIUM CHLORIDE 0.9% 1,000 ML IV SCH ×3 (06:00→16:52)
[2016-06-19] MEDS ORDERED: levETIRAcetam IV 1,000 MG in SODIUM CHLORIDE 0.9% 100 ML IVPB SCH (09:00)
[2016-06-19 09:06] LABS: Basophils % (A) 0 %; CH 31.9; CHCM 32.6; Eosinophils % (A) 0 %; HCT 38.9 % (34.0-46.0); HDW 2.32; HGB 12.7 gm/dL (11.4-16.0); Luc # (Auto) 0.16; Luc % (Auto) 2; Lymphocytes # (A) 0.7 k/uL (1.0-4.8); Lymphocytes % (A) 10 %; MCH 32.2 pg (25.0-35.0); MCHC 32.8 g/dL (31.0-37.0); MCV 98.3 fL (80.0-100.0); Mean Platelet Volume 7.3; Monocytes # (A) 0.6 k/uL (0-1.0); Monocytes % (A) 9 %; Neutrophils # (A) 5.4 k/uL (1.3-7.7); Neutrophils % (A) 79 %; RBC 3.95 m/uL (3.80-5.40); RDW 12.5 % (11.5-15.5); WBC 6.8 k/uL (3.8-10.6); WBC (Perox) 7.56
[2016-06-19] MEDS: PRIMIDONE 250 MG TAB PO SCH ×2 (09:09→22:18)
[2016-06-19] MEDS: carBAMazepine 200 MG TAB PO SCH ×4 (09:09→23:44)
[2016-06-19] MEDS: HEPARIN SODIUM,PORCINE 5,000 UNIT/ML 1 ML VIAL SQ SCH ×2 (09:11→15:17)
[2016-06-19] MEDS: FAMOTIDINE 20 MG/2 ML VIAL IV SCH ×2 (09:11→21:39)
[2016-06-19 09:19] LABS: Anion Gap 18 mmol/L; Blood Urea Nitrogen 18 mg/dL (7-17); Calcium 8.6 mg/dL (8.4-10.2); Carbon Dioxide 15 mmol/L (22-30); Chloride 112 mmol/L (98-107); Glucose 70 mg/dL (74-99); Non-African American GFR(MDRD) >60 (>60 ml/min/1.73 sqM); Potassium 3.4 mmol/L (3.5-5.1); Sodium 145 mmol/L (137-145)
[2016-06-19] MEDS: LEVOFLOXACIN 500MG-D5W PMX 500 MG in DEXTROSE/WATER 1 100ML.BAG IVPB SCH (15:08)
[2016-06-19] MEDS: HYDROmorphone 1 MG/ML 1 ML SYRINGE IV PRN ×2 (15:09→20:35)
--- NOTE | 2016-06-19 15:14 | P.PN ---
Subjective 45-year-old sitting up in a chair nasal gastric tube in place. Mother at the bedside. Patient states has not passed any gas. Patient is aware the surgery is scheduled for tomorrow laparoscopic right inguinal hernia repair patient's been seen by neurology. Dr. Riddle did see patient recommendations reviewed noted and appreciated. Patient cannot take anything by mouth and cannot take her Tegretol or mysoline and they're recommending Keppra 1 g IV piggyback every 12 hours and recheck a Keppra in the morning. Objective - Vital Signs Vital signs: Vital Signs Temp 100.7 F H 06/19/16 07:00 Pulse 119 H 06/19/16 08:00 Resp 16 06/19/16 08:00 BP 124/81 06/19/16 07:00 Pulse Ox 96 06/19/16 07:00 Intake & Output 06/18/16 06/19/16 06/19/16 18:59 06:59 18:59 Intake Total 1150 900 Output Total 1800 200 Balance -1800 950 900 Weight 90.718 kg Intake: Intake, IV Titration 1150 900 Amount Sodium Chloride 0.9% 1, 1050 800 000 ml @ 100 mls/hr IV . Q10H JACY Rx#:[id number] levETIRAcetam IV 1,000 mg 100 100 In Sodium Chloride 0.9% 100 ml @ 400 mls/hr IVPB Q12HR JACY Rx#:[id number] Output: Gastric Drainage 200 Urine 1800 Other: # Voids 2 1 - Exam Physical exam 45-year-old female sitting up in a chair mother at bedside no new events pleasant cooperative oriented 3 Lungs essentially clear adequate air movement Heart S1-S2 audible regular denying chest pain when questioning Abdomen nasogastric tube in place soft slight tenderness persist bowel tones present passing any gas no stool reports having slight abdominal discomfort not distended has not passed any gas Extremities no edema noted - Labs CBC & Chem 7: 06/19/16 08:30 06/19/16 08:30 Labs: Abnormal Lab Results - Last 24 Hours (Table) 06/19/16 06/19/16 Range/Units 08:30 08:30 Lymphocytes # 0.7 L (1.0-4.8) k/uL Potassium 3.4 L (3.5-5.1) mmol/L Chloride 112 H (98-107) mmol/L Carbon Dioxide 15 L (22-30) mmol/L BUN 18 H (7-17) mg/dL Glucose 70 L (74-99) mg/dL Microbiology - Last 24 Hours (Table) 06/18/16 12:15 Urine Culture - Preliminary Urine,Voided 06/17/16 14:54 Blood Culture - Preliminary Blood No Growth after 24 hours Assessment and Plan Plan: Impression Present on admission right lower abdominal pain with a sensation of nausea suspect due to incarcerated right inguinal hernia causing a mechanical small bowel obstruction Present on admission CAT scan of the abdomen pelvis with IV and oral contrast shows cholecystitis Present on admission CAT scan of the abdomen pelvis with IV and oral contrast shows a incarcerated right inguinal hernia causing a mechanical small bowel obstruction History of a seizure disorder Present on admission leukocytosis the low-grade temp Abdominal x-ray on the fourth suggest high-grade small bowel obstruction no free air Plan Keep nothing by mouth ice chips and popsicles only Continue IV hydration Surgical approach to address incarcerated right inguinal hernia scheduled for tomorrow laparoscopic right inguinal hernia repair Bowel rest keep nothing by mouth Cholecystitis will be addressed in the outpatient setting DVT and GI prophylaxis Pain control The surgical plan of care was discussed with the patient and family with the surgeon with questions answered Surgery tentatively scheduled for June 20 The above dictated assessment and findings were discussed with dr Cunningham. Impression and the plan of care have been dictated as directed. Zulma Olmstead nurse practitioner acting as a scribe for Marisa
[2016-06-19] MEDS ORDERED: DEXAMETHASONE SOD PHOSPHATE 10 MG/ML 1 ML VIAL IV ONE (17:59)
[2016-06-19] MEDS ORDERED: ONDANSETRON 4 MG/2 ML VIAL IVP ONE (17:59)
[2016-06-19] MEDS ORDERED: SCOPOLAMINE 1.5MG/72HR PATCH TRANSDERM ONE (17:59)
[2016-06-19] MEDS ORDERED: SODIUM CHLORIDE 0.9% 2,000 ML IV ONE (18:19)
--- NOTE | 2016-06-19 21:01 | PN ---
This 46 -year-old woman who was admitted with features of abdominal incision and small bowel obstruction also had incarcerated right inguinal hernia. Surgery is planned for surgery at this time. Neurology has been consulted for evaluation and treatment of seizure disorder and IV Keppra dose is increasing. No chest pain. No palpitations. No fever. On exam, pulse is 95, blood pressure 140/82, respiratory rate 16, temperature 99 degrees. T-max is 100.7, pulse ox 94% on room air. HEENT: Conjunctivae normal. NECK: No jugular venous distention. CARDIOVASCULAR: S1, S2 muffled. RESPIRATORY: Breath sounds diminished at the bases. No rhonchi. No crackles. ABDOMEN: Soft. Mild diffuse discomfort on palpation. NG tube in situ. Legs: No edema. No swelling. Nervous system: No focal deficits. Labs are CBC within normal limits. Sodium 142, potassium 3.4. UA noted. Otherwise, cultures are negative so far. ASSESSMENT: 1. Abdominal distention, constipation, vomiting, as well as acute small bowel obstruction, possibly secondary to incarcerated right inguinal hernia. 2. Dilated gallbladder, rule out acute cholecystitis. 3. Increased WBC. 4. Fever. 5. Dehydration with acute renal failure, possible prerenal factor present on admission. 6. Increased random blood sugar. 7. Hysterectomy for uterine cancer. 8. History of seizure disorder. 9. Mentally challenged. 10. FULL CODE. RECOMMENDATIONS AND DISCUSSION: Recommend to continue current medications, continue with monitoring, symptomatic treatment. Otherwise, continue with empiric antibiotics. Continue the rest of the medications. Fluid and electrolytes balance closely. DVT prophylaxis. Guarded prognosis because of multiple complex medical issues. Further recommendations to follow. See orders for further details.
[2016-06-19] MEDS: LEVETIRACETAM IV SCH (21:33)
[2016-06-19] MEDS: 0.9% NACL WITH KCL 40 MEQ/L 1,000 ML IV SCH (21:37)
[2016-06-19] MEDS ORDERED: carBAMazepine 200 MG TAB NG-TUBE STA (22:10)
[2016-06-20] MEDS ORDERED: carBAMazepine 200 MG TAB NG-TUBE ONE
[2016-06-20] MEDS: HEPARIN SODIUM,PORCINE 5,000 UNIT/ML 1 ML VIAL SQ SCH ×3 (01:10→16:41)
[2016-06-20] MEDS: LORazepam 2 MG/ML SYRINGE IV PRN (01:13)
[2016-06-20] MEDS ORDERED: ONDANSETRON 4 MG/2 ML VIAL IVP ONE (05:40)
[2016-06-20] MEDS ORDERED: SCOPOLAMINE 1.5MG/72HR PATCH TRANSDERM ONE (05:40)
[2016-06-20] MEDS ORDERED: MIDAZOLAM 2 MG/2 ML VIAL IV PRN ×2 (05:40)
[2016-06-20] MEDS ORDERED: HYDROmorphone 1 MG/ML 1 ML SYRINGE IVP PRN ×2 (05:40)
[2016-06-20] MEDS ORDERED: DEXAMETHASONE SOD PHOSPHATE 10 MG/ML 1 ML VIAL IV ONE (05:40)
--- NOTE | 2016-06-20 06:01 | P.HPADDEND ---
H&P Addendum H&P Addendum Date: 06/20/16 Patient presents with history of small bowel obstruction secondary to incarcerated right inguinal hernia. Despite nasogastric tube decompression, patient is unable to pass flatus and obstruction persists. She has history of cognitive delay including seizure disorder. I discussed with patient and family proceeding with surgical repair and reduction of incarcerated right inguinal hernia. Possibility of small bowel resection reviewed.
[2016-06-20] MEDS: HYDROmorphone 1 MG/ML 1 ML SYRINGE IV PRN ×2 (06:13→17:20)
[2016-06-20] MEDS: LEVETIRACETAM IV SCH ×2 (07:43→21:14)
[2016-06-20 07:52] LABS: Basophils % (A) 0 %; CHCM 33.1; Eosinophils % (A) 0 %; HCT 34.9 % (34.0-46.0); HDW 2.41; HGB 11.9 gm/dL (11.4-16.0); Luc # (Auto) 0.21; Luc % (Auto) 3; Lymphocytes # (A) 0.9 k/uL (1.0-4.8); Lymphocytes % (A) 14 %; MCH 33.1 pg (25.0-35.0); MCHC 34.1 g/dL (31.0-37.0); Mean Platelet Volume 7.7; Monocytes # (A) 0.6 k/uL (0-1.0); Monocytes % (A) 9 %; Neutrophils # (A) 4.8 k/uL (1.3-7.7); Neutrophils % (A) 73 %; RDW 12.5 % (11.5-15.5); WBC 6.6 k/uL (3.8-10.6); WBC (Perox) 6.85
[2016-06-20 08:07] LABS: Anion Gap 14 mmol/L; Blood Urea Nitrogen 12 mg/dL (7-17); Calcium 8.2 mg/dL (8.4-10.2); Carbon Dioxide 18 mmol/L (22-30); Chloride 115 mmol/L (98-107); Glucose 80 mg/dL (74-99); Non-African American GFR(MDRD) >60 (>60 ml/min/1.73 sqM); Potassium 3.6 mmol/L (3.5-5.1); Sodium 147 mmol/L (137-145)
[2016-06-20] MEDS: FAMOTIDINE 20 MG/2 ML VIAL IV SCH ×2 (09:52→21:14)
[2016-06-20] MEDS ORDERED: ceFAZolin 2 GM in SODIUM CHLORIDE 0.9% 100 ML IVPB ONE (10:00)
[2016-06-20] MEDS: LACTATED RINGERS 1,000 ML IV SCH ×3 (11:47→19:08)
[2016-06-20] MEDS ORDERED: ROCURONIUM BROMIDE 10 MG/ML 10 ML VIAL IV ONE (13:09)
[2016-06-20] MEDS ORDERED: NEOSTIGMINE 1 MG/ML 10 ML VIAL ONE (13:09)
[2016-06-20] MEDS ORDERED: SUCCINYLCHOLINE CHLORIDE 100 MG/5 ML SYR IV ONE (13:09)
[2016-06-20] MEDS ORDERED: PROPOFOL 10 MG/ML 20 ML VIAL IV ONE (13:09)
[2016-06-20] MEDS ORDERED: fentaNYL (PF) 50 MCG/ML 2 ML AMP ONE (13:09)
[2016-06-20] MEDS ORDERED: MIDAZOLAM 2 MG/2 ML VIAL ONE (13:09)
[2016-06-20] MEDS ORDERED: GLYCOPYRROLATE 0.2 MG/ML 2 ML VIAL ONE (13:09)
[2016-06-20] MEDS ORDERED: PHENYLEPHRINE-0.9% NACL SYG 1 MG/10 ML SYRINGE ONE (13:09)
[2016-06-20] MEDS ORDERED: BUPIVACAIN-EPI 0.25%-1:200,000 30 ML VIAL SQ ONE (13:43)
[2016-06-20] MEDS ORDERED: LACTATED RINGERS 1,000 ML IV ONE (14:32)
--- NOTE | 2016-06-20 15:26 | P.PCN ---
Date of Procedure: 06/20/16 Preoperative Diagnosis: Small bowel obstruction, right inguinal hernia Postoperative Diagnosis: Strangulated right inguinal hernia, small bowel obstruction Procedure(s) Performed: Laparoscopic reduction of strangulate a right inguinal hernia, small bowel resection distal ileum Anesthesia: GETA, local Surgeon: Lynda Cunningham Estimated Blood Loss (ml): 25 Pathology: other (Small bowel resection) Condition: stable Disposition: floor Operative Findings: Ischemic tissue necrosis small bowel along the right renal indirect hernia, small bowel resected for necrosis of small bowel, placement of SHERRILL drain for contaminated case
[2016-06-20] MEDS: 0.9% NACL WITH KCL 40 MEQ/L 1,000 ML IV SCH ×2 (17:06→19:09)
[2016-06-20] MEDS: LEVOFLOXACIN 500MG-D5W PMX 500 MG in DEXTROSE/WATER 1 100ML.BAG IVPB SCH (17:11)
[2016-06-20] MEDS: PRIMIDONE 250 MG TAB PO SCH ×2 (17:20→21:29)
[2016-06-20] MEDS: carBAMazepine 200 MG TAB PO SCH ×4 (17:20→21:29)
[2016-06-20] MEDS: AMPICILLIN-SULBACTAM 3 GM in SODIUM CHLORIDE 0.9% 100 ML IVPB SCH (18:19)
[2016-06-20] MEDS: KETOROLAC 30 MG/ML 1 ML VIAL IVP SCH (21:29)
--- NOTE | 2016-06-20 23:07 | PN ---
DATE OF SERVICE: 06/20/2016 This 45-year-old woman was admitted with abdominal pain, vomiting as well as acute small bowel obstruction had incarcerated right inguinal hernia. The patient underwent laparoscopic reduction of the strangulated right inguinal hernia, small bowel resection and distal ileum. The patient closely monitored. The patient had ischemic tissue necrosis of the small bowel with right renal indirect hernia, small bowel was resected. On exam, pulse is 94, blood pressure 124/59, respiratory rate 14, temperature 99.6, pulse ox 97% on 10 liters. HEENT: Conjunctivae normal. NECK: No jugular venous distention. RESPIRATORY: Breath sounds diminished at the bases. A few scattered rhonchi and crackles. CARDIOVASCULAR: S1 and S2 muffled. ABDOMEN: Soft, mild diffuse tenderness. Legs: No edema, no swelling. Nervous system: No focal deficits. LABS: WBC 6.7, hemoglobin 11.9, sodium 147, potassium 3.6, CO2 18. Urine appears to be cloudy. ASSESSMENT: 1. Abdominal distention, constipation, vomiting as well as small bowel obstruction secondary to incarcerated right inguinal hernia status post laparoscopic reduction of the strangulated right inguinal hernia small bowel resection of the distal ileum. 2. Dilated gallbladder. 3. Increased WBC. 4. Fever. 5. Dehydration with mild acute renal failure, possible prerenal factor present on admission. 6. Increased random blood sugar. 7. History of hysterectomy for uterine cancer. 8. History of seizure disorder. 9. Mentally challenged. 10. FULL CODE. RECOMMENDATIONS AND DISCUSSION: In this 45-year-old woman who presented with multiple medical issues, we will monitor the patient closely, continue the current medications. Continue symptomatic treatment. Otherwise, at this time, I would recommend continue with broad-spectrum IV antibiotics. Otherwise, cultures are negative so far. White count is also normal. Continue to monitor. Guarded prognosis. Further recommendations to follow. Closely follow with surgery. Discussed with the patient. Discussed with the family. Further recommendations to follow. MTDD
[2016-06-21] MEDS: KETOROLAC 30 MG/ML 1 ML VIAL IVP SCH ×4 (00:08→18:28)
[2016-06-21] MEDS: HEPARIN SODIUM,PORCINE 5,000 UNIT/ML 1 ML VIAL SQ SCH ×3 (00:08→15:50)
[2016-06-21] MEDS: AMPICILLIN-SULBACTAM 3 GM in SODIUM CHLORIDE 0.9% 100 ML IVPB SCH ×3 (00:08→17:05)
[2016-06-21] MEDS: LACTATED RINGERS 1,000 ML IV SCH (07:37)
[2016-06-21] MEDS: 0.9% NACL WITH KCL 40 MEQ/L 1,000 ML IV SCH ×3 (07:37→22:06)
[2016-06-21] MEDS: FAMOTIDINE 20 MG/2 ML VIAL IV SCH (08:11)
[2016-06-21] MEDS: LEVETIRACETAM IV SCH ×2 (08:11→21:58)
[2016-06-21] MEDS: carBAMazepine 200 MG TAB PO SCH ×4 (08:11→21:59)
[2016-06-21] MEDS: PRIMIDONE 250 MG TAB PO SCH ×2 (08:12→21:58)
[2016-06-21 08:27] LABS: Anion Gap 10 mmol/L; Blood Urea Nitrogen 9 mg/dL (7-17); Calcium 7.9 mg/dL (8.4-10.2); Carbon Dioxide 18 mmol/L (22-30); Chloride 111 mmol/L (98-107); Glucose 88 mg/dL (74-99); Non-African American GFR(MDRD) >60 (>60 ml/min/1.73 sqM); Potassium 3.9 mmol/L (3.5-5.1); Sodium 139 mmol/L (137-145)
[2016-06-21 08:46] LABS: Basophils % (A) 0 %; CH 32.2; CHCM 33.4; Eosinophils % (A) 0 %; HCT 38.5 % (34.0-46.0); HDW 2.38; HGB 13.4 gm/dL (11.4-16.0); Luc # (Auto) 0.13; Luc % (Auto) 2; Lymphocytes # (A) 0.6 k/uL (1.0-4.8); Lymphocytes % (A) 7 %; MCH 33.7 pg (25.0-35.0); MCHC 34.8 g/dL (31.0-37.0); MCV 96.9 fL (80.0-100.0); Mean Platelet Volume 7.4; Monocytes # (A) 0.3 k/uL (0-1.0); Monocytes % (A) 4 %; Neutrophils # (A) 7.9 k/uL (1.3-7.7); Neutrophils % (A) 87 %; RBC 3.97 m/uL (3.80-5.40); RDW 12.7 % (11.5-15.5); WBC (Perox) 10.05
[2016-06-21 10:22] LABS: Manual Review Performed; RBC Morphology Normal
[2016-06-21 10:23] LABS: Toxic Granulation Present
--- NOTE | 2016-06-21 13:37 | P.PN ---
Subjective A 45-year-old female being seen with the surgical attending currently resting in bed mother at bedside updated on plan of care. Patient is postop small bowel Obstruction due to a strangulated right inguinal hernia patient is postop 08/2016 laparoscopic reduction of a strangulated right inguinal hernia small bowel resection distal ileum Operative Findings: Ischemic tissue necrosis small bowel along the right renal indirect hernia, small bowel resected for necrosis of small bowel, placement of SHERRILL drain for contaminated case Labs were reviewed patient indicates less abdominal discomfort passing no gas no stool has been afebrile a gastric tube in place dressing to surgical site dry with a Lauri-Omer drain in place Objective - Vital Signs Vital signs: Vital Signs Temp 97.9 F 06/21/16 07:00 Pulse 118 H 06/21/16 08:00 Resp 16 06/21/16 08:00 BP 104/62 06/21/16 07:00 Pulse Ox 92 L 06/21/16 07:00 Intake & Output 06/20/16 06/21/16 06/21/16 18:59 06:59 18:59 Intake Total 1500 600 300 Output Total 1415 600 Balance 85 0 300 Weight 90.718 kg Intake: IV 1500 600 0.9% NaCl with KCl 40 Meq 600 /l 1,000 ml @ 100 mls/hr IV .Q10H JACY Rx#: [id number] Oral 300 Output: Drainage 150 Abdomen 150 Urine 1310 450 Estimated Blood Loss 25 Other 80 Other: Voiding Method Bedside Commode Indwelling Catheter Indwelling Catheter # Voids 2 # Bowel Movements 1 - Exam Physical exam 45-year-old female currently being seen on rounds this morning is sitting up in bed. Mother at the bedside. Nasogastric tube in place connected to suction. Patient is taking ice chips and tolerating them Lungs essentially clear with adequate air movement currently on room air with sats documented at 92% Heart S1-S2 audible and regular no murmur noted denying chest pain Abdomen diffuse surgical tenderness noted a Lauri-Omer drain in place serous drainage noted. Nasal gastric tube connected to suction. States no stool hypoactive bowel tones noted indwelling Regalado catheter in place dark karuna urine noted Extremities no evidence of edema to the upper or lower extremities - Labs CBC & Chem 7: 06/21/16 07:55 06/21/16 07:55 Labs: Abnormal Lab Results - Last 24 Hours (Table) 06/21/16 06/21/16 Range/Units 07:55 07:55 Plt Count 144 L (150-450) k/uL Neutrophils # 7.9 H (1.3-7.7) k/uL Lymphocytes # 0.6 L (1.0-4.8) k/uL Chloride 111 H (98-107) mmol/L Carbon Dioxide 18 L (22-30) mmol/L Calcium 7.9 L (8.4-10.2) mg/dL Microbiology - Last 24 Hours (Table) 06/20/16 16:38 Gram Stain - Preliminary Incision Tissue Culture - Preliminary 06/20/16 16:38 Anaerobic Culture - Preliminary Incision 06/17/16 14:54 Blood Culture - Preliminary Blood No Growth after 72 hours Assessment and Plan Plan: Impression Present on admission right lower abdominal pain with a sensation of nausea suspect due to incarcerated right inguinal hernia causing a mechanical small bowel obstruction Present on admission CAT scan of the abdomen pelvis with IV and oral contrast shows cholecystitis Present on admission CAT scan of the abdomen pelvis with IV and oral contrast shows a incarcerated right inguinal hernia causing a mechanical small bowel obstruction History of a seizure disorder Present on admission leukocytosis the low-grade temp Abdominal x-ray on the fourth suggest high-grade small bowel obstruction no free air Postop June 20 Laparoscopic reduction of strangulate right inguinal hernia, small bowel resection distal ileum Operative Findings: Ischemic tissue necrosis small bowel along the right renal indirect hernia, small bowel resected for necrosis of small bowel, placement of SHERRILL drain for contaminated case Plan Clear liquid diet ice chips popsicles Continue with the nasal gastric tube Increase ambulation patient was ambulating in the gross at least 3 times\ 2 L fluid bolus 1 now Continue IV hydration Cholecystitis will be addressed in the outpatient setting DVT and GI prophylaxis Pain control The above dictated assessment and findings were discussed with dr Cunningham. Impression and the plan of care have been dictated as directed. Zulma Olmstead nurse practitioner acting as a scribe for Marisa
[2016-06-21] MEDS: LEVOFLOXACIN 500MG-D5W PMX 500 MG in DEXTROSE/WATER 1 100ML.BAG IVPB SCH (15:46)
--- NOTE | 2016-06-21 21:20 | PN ---
DATE OF SERVICE: 06/21/2016 This 45-year-old woman who was admitted with abdominal distention, features of small bowel obstruction had laparoscopic reduction of strangulated hernia and small bowel resection of the distal ileum. Patient being closely monitored. No chest pain. No palpitations. NG tube in situ. On exam, pulse is 84, blood pressure 120/64, respiration 16, temperature 97.7, pulse ox 92% on room air. HEENT: Conjunctivae normal. NECK: NO jugular venous distention. CARDIOVASCULAR: S1, S2 muffled. RESPIRATORY: Breath sounds diminished at the bases. A few scattered rhonchi and crackles. ABDOMEN: Soft, status post surgery. LEGS: No edema. No swelling. CENTRAL NERVOUS SYSTEM: No focal deficits. LABS: Sodium 130, WBC 9, hemoglobin 13.4, glucose 88. UA noted. Cultures noted. Cultures negative so far. ASSESSMENT: 1. Abdominal distention, constipation, vomiting as well as small bowel obstruction secondary to incarcerated right inguinal hernia status post laparoscopic reduction of the strangulated right inguinal hernia and as well as bowel resection of the distal ileum. 2. Dilated gallbladder on the CT scan. 3. Increased WBC. 4. Fever, improved. 5. Dehydration with mild acute renal failure, possible prerenal factors. 6. Increased random blood sugar. 7. History of hysterectomy for uterine cancer. 8. History of seizure disorder. 9. Mentally challenged. 10. FULL CODE. RECOMMENDATIONS AND DISCUSSION: Recommend to continue current medications, continue with monitoring. Symptomatic treatment. Incentive spirometry. Continue the rest of the medications. Repeat labs. Continue to monitor. Closely follow with surgery.
[2016-06-21] MEDS: FAMOTIDINE 20 MG TAB PO SCH (21:59)
--- NOTE | 2016-06-21 23:03 | EEG ---
DATE OF SERVICE: 06/21/2016 INDICATIONS FOR EXAMINATION: This patient is a 45-year-old female with history of seizure disorder. Patient undergoing abdominal surgery for incarcerated hernia. AGE: 45Y EEG FINDINGS: A routine 21-channel, awake digital EEG recording was accomplished utilizing the 10-20 international system with bipolar and referential montages. The background activity in the most alert resting state consists of a low to medium amplitude, fairly well-developed and well-sustained 6 Hz activity over the posterior head regions. This posterior rhythm attenuates to eye opening. There is a small amount of low amplitude 18-20 Hz beta activity seen maximally over the anterior head regions. Muscle and movement artifact was observed on a few occasions during the tracing. Hyperventilation was not performed. Photic stimulation at flash frequencies of 2-30 Hz produced a good symmetrical occipital driving response. No epileptiform discharges were seen. IMPRESSION: This EEG is moderately abnormal in diffuse fashion due to slowing of the EEG background. The EEG failed to reveal any focal, lateralized or epileptiform abnormalities. Clinical correlation is recommended.
[2016-06-22] MEDS: AMPICILLIN-SULBACTAM 3 GM in SODIUM CHLORIDE 0.9% 100 ML IVPB SCH ×2 (00:11→08:50)
[2016-06-22] MEDS: HEPARIN SODIUM,PORCINE 5,000 UNIT/ML 1 ML VIAL SQ SCH ×3 (00:11→17:44)
[2016-06-22] MEDS: KETOROLAC 30 MG/ML 1 ML VIAL IVP SCH ×3 (00:11→12:17)
[2016-06-22] MEDS: LACTATED RINGERS 1,000 ML IV SCH ×2 (05:45)
[2016-06-22] MEDS: PRIMIDONE 250 MG TAB PO SCH ×2 (08:50→21:04)
[2016-06-22] MEDS: carBAMazepine 200 MG TAB PO SCH ×4 (08:50→21:04)
[2016-06-22] MEDS: FAMOTIDINE 20 MG TAB PO SCH ×2 (08:50→21:04)
[2016-06-22 09:03] LABS: Basophils % (A) 0 %; CH 32.9; CHCM 33.3; Eosinophils % (A) 0 %; HCT 37.3 % (34.0-46.0); HDW 2.31; HGB 12.3 gm/dL (11.4-16.0); Luc # (Auto) 0.15; Luc % (Auto) 1; Lymphocytes # (A) 0.7 k/uL (1.0-4.8); Lymphocytes % (A) 6 %; MCH 32.7 pg (25.0-35.0); MCHC 32.9 g/dL (31.0-37.0); MCV 99.4 fL (80.0-100.0); Mean Platelet Volume 7.8; Monocytes # (A) 0.3 k/uL (0-1.0); Monocytes % (A) 3 %; Neutrophils # (A) 10.2 k/uL (1.3-7.7); Neutrophils % (A) 90 %; RBC 3.75 m/uL (3.80-5.40); RDW 13.2 % (11.5-15.5); WBC 11.4 k/uL (3.8-10.6); WBC (Perox) 12.55
[2016-06-22 09:24] LABS: Anion Gap 11 mmol/L; Blood Urea Nitrogen 12 mg/dL (7-17); Calcium 7.8 mg/dL (8.4-10.2); Carbon Dioxide 20 mmol/L (22-30); Chloride 107 mmol/L (98-107); Glucose 97 mg/dL (74-99); Non-African American GFR(MDRD) >60 (>60 ml/min/1.73 sqM); Potassium 3.7 mmol/L (3.5-5.1); Sodium 138 mmol/L (137-145)
[2016-06-22] MEDS ORDERED: SODIUM CHLORIDE 0.9% 2,000 ML IV ONE (09:27)
[2016-06-22] MEDS: 0.9% NACL WITH KCL 40 MEQ/L 1,000 ML IV SCH (10:14)
[2016-06-22] MEDS: LEVETIRACETAM IV SCH ×2 (10:21→21:04)
--- NOTE | 2016-06-22 11:19 | P.PN ---
Subjective Principal diagnosis: Bowel obstruction The patient is a 45-year-old female status post bowel resection for strangulated right inguinal hernia. She has passed flatus. She had a bowel movement. She is ambulating. Pain is well-controlled. She is tolerating liquid diet. Objective - Vital Signs Vital signs: Vital Signs Temp 98.2 F 06/22/16 07:00 Pulse 116 H 06/22/16 07:00 Resp 18 06/22/16 08:00 BP 121/77 06/22/16 07:00 Pulse Ox 93 L 06/22/16 07:00 Intake & Output 06/21/16 06/22/16 06/22/16 18:59 06:59 18:59 Intake Total 300 1150 Output Total 2630 275 Balance -2330 875 Weight 90.718 kg Intake: IV 700 0.9% NaCl with KCl 40 Meq 700 /l 1,000 ml @ 100 mls/hr IV .Q10H [facility]AC[facility] Rx#: [id number] Intake, IV Titration 450 Amount Ampicillin-Sulbactam 3 gm 350 In Sodium Chloride 0.9% 100 ml @ 100 mls/hr IVPB Q8HR [facility] Rx#:[id number] levETIRAcetam IV 1,000 mg 100 In Empty Bag 1 bag @ 400 mls/hr IV Q12HR JACY Rx#: [id number] Oral 300 Output: Gastric Drainage 700 Drainage 180 75 Abdomen 180 75 Urine 1750 200 Uretheral (Regalado) 600 Other: Voiding Method Indwelling Catheter Indwelling Catheter Indwelling Catheter # Voids 2 - Exam GENERAL: Well developed and in no acute distress. Pleasant. HEENT: No sclera icterus. Extraocular movements grossly intact. Moist buccal mucosa. Head is atraumatic, normocephalic. Hears conversational speech. No nasal drainage. NECK: Supple without lymphadenopathy. No JV distention. CHEST: Non-labored respirations and equal bilateral excursions. CARDIOVASCULAR: Regular rate and rhythm. Palpable 2+ radial pulses. ABDOMEN: Soft, mild distention. Laparoscopic sites clean dry and intact. SHERRILL with sedimentation and serosanguineous. MUSCULOSKELETAL: No clubbing, cyanosis or edema. : Dark with sedimentation. NEUROLOGIC: No focal or lateralizing signs. PSYCH: Alert and oriented to person. Has cognitive delay. - Labs CBC & Chem 7: 06/22/16 07:19 06/22/16 07:19 Labs: Abnormal Lab Results - Last 24 Hours (Table) 06/22/16 06/22/16 Range/Units 07:19 07:19 WBC 11.4 H (3.8-10.6) k/uL RBC 3.75 L (3.80-5.40) m/uL Plt Count 149 L (150-450) k/uL Neutrophils # 10.2 H (1.3-7.7) k/uL Lymphocytes # 0.7 L (1.0-4.8) k/uL Carbon Dioxide 20 L (22-30) mmol/L Calcium 7.8 L (8.4-10.2) mg/dL Microbiology - Last 24 Hours (Table) 06/17/16 14:54 Blood Culture - Preliminary Blood No Growth after 96 hours Assessment and Plan (1) Inguinal hernia with strangulation Status: Acute (2) S/P small bowel resection Status: Acute (3) S/P inguinal hernia repair Status: Acute (4) Incarcerated hernia Status: Acute (5) SBO (small bowel obstruction) Status: Acute (6) History of seizures Status: Chronic Plan: 1. Her NG tube was discontinued by me. Regalado catheter discontinued today. 2. Peritoneal fluid cultures are pending for contaminated case. 3. Will need outpatient antibiotics for history of contaminated case. 4. Continue with SHERRILL drain as outpatient. 5. Diet is advanced to soft. 6. IV fluid hydration for dehydration for tachycardia including dark urine output. 7. Potential discharge home tomorrow when medically stable.
--- NOTE | 2016-06-22 13:52 | XR ---
EXAMINATION TYPE: XR chest 2V DATE OF EXAM: 06/22/2016 1:44 PM COMPARISON: 06/17/2016 HISTORY: 45-year-old female with atelectasis and bowel obstruction TECHNIQUE: Frontal and lateral views FINDINGS: Heart is normal size. The slight leftward patient rotation alters the normal mediastinal contours. Di ffuse interstitial prominence as a chronic appearance. Low lung volumes with crowded vascular marking s and some patchy posterior basilar opacity on the lateral view, likely atelectasis. No pleural effus ion. IMPRESSION: Hypoventilatory changes. Some patchy posterior basilar opacity on the lateral view likely represents atelectasis.
--- NOTE | 2016-06-22 13:54 | XR ---
EXAMINATION TYPE: XR abdomen 2V DATE OF EXAM: 06/22/2016 1:44 PM CLINICAL DATA: 45-year-old female follow-up bowel obstruction, [facility] COMPARISON: 06/18/2016 FINDINGS: Lung bases are clear. No evidence for free intraperitoneal air. Small bowel loops remain dilated measuring up to 6 cm. Minimal foci of air are seen within the right hemicolon. There appears to be a surgical drain in pelvis. IMPRESSION: Small bowel loops remain dilated now measuring up to 6 cm. Severe ileus and small bowel obstruction a re both in the differential. Query surgical drain in the pelvis.
[2016-06-22] MEDS: LEVOFLOXACIN 500MG-D5W PMX 500 MG in DEXTROSE/WATER 1 100ML.BAG IVPB SCH (14:11)
[2016-06-23] MEDS: HEPARIN SODIUM,PORCINE 5,000 UNIT/ML 1 ML VIAL SQ SCH ×4 (00:54→23:44)
[2016-06-23] MEDS: 0.9% NACL WITH KCL 40 MEQ/L 1,000 ML IV SCH ×3 (00:56→13:40)
[2016-06-23 07:19] LABS: Basophils % (A) 0 %; CH 32.3; CHCM 31.2; Eosinophils # (A) 0.1 k/uL (0-0.7); Eosinophils % (A) 1 %; HCT 35.2 % (34.0-46.0); HDW 2.32; HGB 11.2 gm/dL (11.4-16.0); Luc # (Auto) 0.18; Luc % (Auto) 2; Lymphocytes # (A) 0.8 k/uL (1.0-4.8); Lymphocytes % (A) 9 %; MCH 33.2 pg (25.0-35.0); MCHC 31.9 g/dL (31.0-37.0); MCV 104.1 fL (80.0-100.0); Macrocytosis Slight; Mean Platelet Volume 7.6; Monocytes # (A) 0.4 k/uL (0-1.0); Monocytes % (A) 4 %; Neutrophils # (A) 7.9 k/uL (1.3-7.7); Neutrophils % (A) 84 %; RBC 3.38 m/uL (3.80-5.40); WBC 9.4 k/uL (3.8-10.6)
[2016-06-23 07:55] LABS: Anion Gap 6 mmol/L; Blood Urea Nitrogen 4 mg/dL (7-17); Calcium 7.1 mg/dL (8.4-10.2); Carbon Dioxide 20 mmol/L (22-30); Chloride 108 mmol/L (98-107); Glucose 97 mg/dL (74-99); Magnesium 1.4 mg/dL (1.6-2.3); Non-African American GFR(MDRD) >60 (>60 ml/min/1.73 sqM); Phosphorous 1.7 mg/dL (2.5-4.5); Potassium 3.6 mmol/L (3.5-5.1); Sodium 134 mmol/L (137-145)
--- NOTE | 2016-06-23 08:34 | US ---
EXAMINATION TYPE: US gallbladder DATE OF EXAM: 06/23/2016 7:53 AM COMPARISON: Correlation for 05/06/2016 CLINICAL HISTORY: 45 year-old female right upper quadrant pain. Abnormal CT, ABD pain TECHNIQUE: Multiple sonographic images of the right upper quadrant are obtained. FINDINGS: Protective Signal Operator notes: Somewhat difficult exam, patient mentally challenged and unable to lie still du ring exam Liver Length: 15.6 cm Gallbladder Wall: 0.4 cm CBD: 0.5 cm Right Kidney: 12.1 x 5.1 x 4.8 cm Pancreas: Difficult to visualize due to overlying bowel gas Liver Limited views show no gross abnormality. Gallbladder: Appears distended. There is extensive shadowing arising from the gallbladder lumen with wall echo shadow complex and mild gallbladder wall thickening. Evidence for sonographic Sierra's sign: No CBD: Within normal limits Right Kidney: No hydronephrosis. IMPRESSION: 1. If the patient received prior pain medication, clinical correlation will be recommended for any pablo spected acute cholecystitis. There is gallbladder wall thickening, gallbladder hydrops, and extensive shadowing suggesting that the lumen is packed with stones. At the least, chronic cholecystitis may b e present. If further imaging evaluation is desired, HIDA scan with ejection fraction can be consider ed. 2. Otherwise, limited assessment as above.
[2016-06-23] MEDS: LEVETIRACETAM IV SCH ×2 (09:24→21:30)
[2016-06-23] MEDS: FAMOTIDINE 20 MG TAB PO SCH ×2 (09:24→21:30)
[2016-06-23] MEDS: carBAMazepine 200 MG TAB PO SCH ×4 (09:24→21:30)
[2016-06-23] MEDS: PRIMIDONE 250 MG TAB PO SCH ×2 (09:24→21:31)
--- NOTE | 2016-06-23 10:31 | PN ---
DATE OF SERVICE: 06/22/2016 This 46-year-old woman who was admitted with abdominal distention, constipation, vomiting, had small strangulated incarcerated right inguinal hernia. The patient underwent laparoscopic reduction of the strangulated right inguinal hernia as well as bowel resection of the distal ileum. The patient is being closely monitored. No chest pain or palpitations. Dr. Cunningham is following the patient closely. Today the patient had an abdominal x-ray which showed some ileus and chest x-ray showed hypoventilatory changes as well. PAST MEDICAL HISTORY: Reviewed. REVIEW OF SYSTEMS: Could not be taken. Medications are reviewed and include: 1. Harbeson 5 mg every 4 hours for pain. 2. Tegretol 200 mg p.o. daily. 3. Pepcid 20 mg daily. 4. Heparin 5000 units subcu. 5. Dilaudid 1 mg every 3 p.r.n. 6. Keppra. 7. Ativan. 8. Narcan. 9. Zofran. 10. Mysoline. PHYSICAL EXAMINATION: Pulse is 116, blood pressure 120/70, respirations 18, temperature 98.2, pulse ox 93% on room air. HEENT: Conjunctivae normal. NECK: No JVD. No carotid bruits. CARDIOVASCULAR: S1 and S2 muffled. LUNGS: Breath sounds diminished at the bases. Few rhonchi. No crackles. ABDOMEN: Soft. Mild diffuse distention. EXTREMITIES: No edema. LABS: WBC 11.4, platelets 149,000, sodium 138, calcium 7.8. Keppra is 5.5. ASSESSMENT: 1. Abdominal distention, constipation, vomiting as well as small bowel obstruction secondary to incarcerated right inguinal hernia present on admission, status post laparoscopic reduction of the strangulated right inguinal hernia as well as bowel resection of the distal ileum. 2. Postoperative ileus. 3. Bilateral atelectasis, possibly. 4. Dilated gallbladder on the CT scan. 5. Increased WBC, improved. 6. Dehydration with mild acute renal failure, present on admission with prerenal factors. 7. Increased random blood sugar. 8. History of hysterectomy for uterine cancer. 9. History of seizure disorder. 10. Mentally challenged. 11. FULL CODE. RECOMMENDATIONS AND DISCUSSION: Recommend to continue current medications, continue symptomatic treatment. Closely with surgery. Otherwise continue the current medications. The patient is on empiric antibiotics. Otherwise monitor closely with surgery. Repeat labs. Further recommendations to follow.
[2016-06-23] MEDS: MAGNESIUM SULFATE-D5W PMX 1 GM in DEXTROSE/WATER 1 100ML.BAG IVPB SCH ×3 (11:30→16:31)
[2016-06-23] MEDS: POTASSIUM PHOSPHATE 10 MMOL in SODIUM CHLORIDE 0.9% 250 ML IV SCH ×3 (12:22→17:25)
[2016-06-23] MEDS: LEVOFLOXACIN 500MG-D5W PMX 500 MG in DEXTROSE/WATER 1 100ML.BAG IVPB SCH (15:18)
--- NOTE | 2016-06-23 16:33 | P.PN ---
Subjective Principal diagnosis: Small bowel obstruction 45 years old female status post small bowel obstruction, extensive lysis of adhesion. Tolerating liquid diet. No bowel movements yet. SHERRILL drain has serosanguineous output. No acute events overnight. Objective - Vital Signs Vital signs: Vital Signs Temp 98.2 F 06/23/16 15:00 Pulse 107 H 06/23/16 15:00 Resp 18 06/23/16 15:00 BP 113/74 06/23/16 15:00 Pulse Ox 97 06/23/16 15:00 Intake & Output 06/22/16 06/23/16 06/23/16 18:59 06:59 18:59 Intake Total 2800 1150 Output Total 38 40 80 Balance 2762 1110 -80 Intake: IV 250 0.9% NaCl with KCl 40 Meq 250 /l 1,000 ml @ 100 mls/hr IV .Q10H JACY Rx#: [id number] Intake, IV Titration 2800 900 Amount 0.9% NaCl with KCl 40 Meq 700 800 /l 1,000 ml @ 100 mls/hr IV .Q10H JACY Rx#: [id number] Ampicillin-Sulbactam 3 gm 100 In Sodium Chloride 0.9% 100 ml @ 100 mls/hr IVPB Q8HR JACY Rx#:[id number] Sodium Chloride 0.9% 2, 2000 000 ml @ 999 mls/hr IV . Q2H1M ONE Rx#:[id number] levETIRAcetam IV 1,000 mg 100 In Empty Bag 1 bag @ 400 mls/hr IV Q12HR JACY Rx#: [id number] Output: Drainage 35 40 80 Abdomen 35 40 80 Stool 3 Other: Voiding Method Toilet Toilet Toilet # Voids 1 1 # Bowel Movements 1 1 - Exam General: Patient is alert and oriented to time, place and person and cooperative with exam. HEENT: No pallor, no icterus, Chest: Bilateral equal breath sounds present. No wheezes, no crackles. Cardiovascular: Regular rate and rhythm. Abdomen: Soft, nontender, nondistended. Incision clean dry and intact Integumentary: Pitting anterior abdominal wall edema and bilateral lower extremity edema No active ulcers or discharge. Neurologic: Cranial nerves II-XII intact. Strength upper and lower extremities 5/5. No focal neurologic deficits. Gait is normal. Psychiatric: No anxiety or psychosis. No suicidal thoughts. - Labs CBC & Chem 7: 06/23/16 06:56 06/23/16 06:56 Labs: Abnormal Lab Results - Last 24 Hours (Table) 06/23/16 06/23/16 Range/Units 06:56 06:56 RBC 3.38 L (3.80-5.40) m/uL Hgb 11.2 L (11.4-16.0) gm/dL MCV 104.1 H (80.0-100.0) fL Plt Count 121 L (150-450) k/uL Neutrophils # 7.9 H (1.3-7.7) k/uL Lymphocytes # 0.8 L (1.0-4.8) k/uL Sodium 134 L (137-145) mmol/L Chloride 108 H (98-107) mmol/L Carbon Dioxide 20 L (22-30) mmol/L BUN 4 L (7-17) mg/dL Creatinine 0.46 L (0.52-1.04) mg/dL Calcium 7.1 L (8.4-10.2) mg/dL Phosphorus 1.7 L (2.5-4.5) mg/dL Magnesium 1.4 L (1.6-2.3) mg/dL Microbiology - Last 24 Hours (Table) 06/20/16 16:38 Gram Stain - Preliminary Incision Tissue Culture - Preliminary Gram Neg Bacilli 06/17/16 14:54 Blood Culture - Preliminary Blood No Growth after 120 hours Assessment and Plan (1) S/P small bowel resection Status: Acute Plan: 1. Continue SHERRILL drain to bulb suction 2. Advance diet as tolerated 3. Discharge planning and next 24-48 hours
[2016-06-23] MEDS: HYDROmorphone 1 MG/ML 1 ML SYRINGE IV PRN (19:03)
[2016-06-24] MEDS: 0.9% NACL WITH KCL 40 MEQ/L 1,000 ML IV SCH ×3 (00:02→21:48)
[2016-06-24] MEDS: LEVETIRACETAM IV SCH ×2 (07:26→19:59)
[2016-06-24] MEDS: FAMOTIDINE 20 MG TAB PO SCH ×2 (07:27→20:01)
[2016-06-24] MEDS: HEPARIN SODIUM,PORCINE 5,000 UNIT/ML 1 ML VIAL SQ SCH ×2 (07:27→17:04)
[2016-06-24] MEDS: carBAMazepine 200 MG TAB PO SCH ×4 (07:27→20:02)
[2016-06-24 07:55] LABS: Basophils # (A) 0.1 k/uL (0-0.2); Basophils % (A) 1 %; CH 31.9; CHCM 32.7; Eosinophils # (A) 0.1 k/uL (0-0.7); Eosinophils % (A) 1 %; HCT 34.3 % (34.0-46.0); HDW 2.41; HGB 11.6 gm/dL (11.4-16.0); Luc # (Auto) 0.24; Luc % (Auto) 2; Lymphocytes # (A) 0.9 k/uL (1.0-4.8); Lymphocytes % (A) 8 %; MCHC 33.7 g/dL (31.0-37.0); Mean Platelet Volume 7.3; Monocytes # (A) 0.6 k/uL (0-1.0); Monocytes % (A) 6 %; Neutrophils # (A) 8.6 k/uL (1.3-7.7); Neutrophils % (A) 82 %; RBC 3.51 m/uL (3.80-5.40); RDW 12.6 % (11.5-15.5); WBC 10.4 k/uL (3.8-10.6); WBC (Perox) 10.82
[2016-06-24 08:31] LABS: Anion Gap 6 mmol/L; Carbon Dioxide 21 mmol/L (22-30); Chloride 108 mmol/L (98-107); Glucose 98 mg/dL (74-99); Non-African American GFR(MDRD) >60 (>60 ml/min/1.73 sqM); Sodium 135 mmol/L (137-145)
[2016-06-24] MEDS: PRIMIDONE 250 MG TAB PO SCH ×2 (08:51→20:45)
[2016-06-24 09:01] LABS: Blood Urea Nitrogen 3 mg/dL (7-17); Potassium 3.7 mmol/L (3.5-5.1)
[2016-06-24 09:02] LABS: MCV 97.9 fL (80.0-100.0)
--- NOTE | 2016-06-24 11:53 | PN ---
DATE OF SERVICE: 06/23/2016 This is a [id number] who was admitted with abdominal distention and constipation, vomiting, also a small bowel obstruction. Patient had surgery which improved significantly. No chest pain. No palpitation. The patient also had gallbladder ultrasound, which showed significant findings. Dr. Wang is following the patient closely. Recommend advance diet as tolerated. On exam, alert and oriented x3. Pulse is 107, blood pressure 113/74, respirations 18, temperature 98.2, pulse ox is 97% on room air. HEENT: Conjunctivae normal. NECK: No jugular venous distension. CARDIOVASCULAR: S1, S2, muffled. RESPIRATORY: Breath sounds diminished at the bases. A few scattered rhonchi. ABDOMEN: Soft, status post surgery. LEGS: No swelling, no edema. NERVOUS SYSTEM: No focal deficits. LABS: WBC is 9.3, hemoglobin is 11.2, platelets of 121. Magnesium is 1.4. ASSESSMENT: 1. Abdominal distention, constipation, vomiting as well as small bowel obstruction secondary to incarcerated right inguinal hernia present on admission, status post laparoscopic reduction of the strangulated right inguinal hernia as well as bowel resection with distal ileum. 2. Postoperative ileus. 3. Bilateral atelectasis, possibly. 4. Dilated gallbladder on the CAT scan. 5. Increased WBC, improved. 6. Dehydration with mild acute renal failure, present on admission with prerenal factors. 7. Hyponatremia, mild. 8. Hypomagnesemia. 9. Hypophosphatemia. 10. Hypocalcemia, mild. 11. Anemia, macrocytic. 12. Increased WBC, improved. 13. Increased random blood sugar. 14. History of hysterectomy for uterine cancer. 15. History of seizure disorder. 16. Mentally challenged. 17. FULL CODE. RECOMMENDATION: Recommend to continue current medications. Continue with the symptomatic treatment. Otherwise, continue with the repeat labs and closely monitor. Replace magnesium. Closely follow with the surgical team and replace potassium. Further recommendations to follow.
--- NOTE | 2016-06-24 13:40 | P.PN ---
Subjective 45 rolled female sitting up in a chair. Tolerating diet reportedly has had "3 bowel movements in the last day. Patient states anxious to be discharged. White count this morning 10.4 electrolytes all within normal limits been no new events noted Lauri-Omer drain serous drainage noted Patient is postop small bowel obstruction due to a strangulated right inguinal hernia done on June 20 Objective - Vital Signs Vital signs: Vital Signs Temp 98.8 F 06/24/16 07:00 Pulse 109 H 06/24/16 08:00 Resp 16 06/24/16 08:00 BP 107/62 06/24/16 07:00 Pulse Ox 97 06/24/16 07:00 Intake & Output 06/23/16 06/24/16 06/24/16 18:59 06:59 18:59 Intake Total 720 1830 Output Total 80 120 203 Balance -80 600 1627 Weight 90.718 kg Intake: IV 750 0.9% NaCl with KCl 40 Meq 750 /l 1,000 ml @ 100 mls/hr IV .Q10H JACY Rx#: [id number] Intake, IV Titration 100 Amount Levofloxacin 500Mg-D5w 100 Pmx 500 mg In Dextrose/ Water 1 100ml.bag @ 100 mls/hr IVPB Q24H JACY Rx#: [id number] Oral 720 980 Output: Drainage 80 120 Abdomen 80 120 Urine 200 Stool 3 Other: Voiding Method Toilet Toilet Toilet # Voids 1 3 3 # Bowel Movements 1 1 - Exam Physical exam 45-year-old female currently being seen on rounds this morning is sitting up in chair Mother at the bedside Lungs essentially clear with adequate air movement currently on room air with sats documented at 92% Heart S1-S2 audible and regular no murmur noted denying chest pain Abdomen diffuse surgical tenderness dressing dry to surgical site states has had 3 bowel movements urinating no difficulty tolerating the diet Lauri-Omer drain serous drainage states passing gas Extremities no evidence of edema to the upper or lower extremities - Labs CBC & Chem 7: 06/24/16 07:32 06/24/16 07:32 Labs: Abnormal Lab Results - Last 24 Hours (Table) 06/24/16 06/24/16 Range/Units 07:32 07:32 RBC 3.51 L (3.80-5.40) m/uL Neutrophils # 8.6 H (1.3-7.7) k/uL Lymphocytes # 0.9 L (1.0-4.8) k/uL Sodium 135 L (137-145) mmol/L Chloride 108 H (98-107) mmol/L Carbon Dioxide 21 L (22-30) mmol/L BUN 3 L (7-17) mg/dL Creatinine 0.45 L (0.52-1.04) mg/dL Calcium 7.0 L (8.4-10.2) mg/dL Microbiology - Last 24 Hours (Table) 06/20/16 16:38 Anaerobic Culture - Preliminary Incision Clostridium septicum 06/17/16 14:54 Blood Culture - Final Blood No Growth after 144 hours Assessment and Plan Plan: Impression Present on admission right lower abdominal pain with a sensation of nausea suspect due to incarcerated right inguinal hernia causing a mechanical small bowel obstruction Present on admission CAT scan of the abdomen pelvis with IV and oral contrast shows cholecystitis Present on admission CAT scan of the abdomen pelvis with IV and oral contrast shows a incarcerated right inguinal hernia causing a mechanical small bowel obstruction History of a seizure disorder Present on admission leukocytosis the low-grade temp Abdominal x-ray on the fourth suggest high-grade small bowel obstruction no free air Postop June 20 Laparoscopic reduction of strangulate right inguinal hernia, small bowel resection distal ileum Operative Findings: Ischemic tissue necrosis small bowel along the right renal indirect hernia, small bowel resected for necrosis of small bowel, placement of SHERRILL drain for contaminated case Plan Diet has been advanced Prepped for possible discharge today Increase ambulation patient was ambulating in the gross at least 3 times\\ Cholecystitis will be addressed in the outpatient setting DVT and GI prophylaxis Pain control The above dictated assessment and findings were discussed with dr Cunningham. Impression and the plan of care have been dictated as directed. Zulma Olmstead nurse practitioner acting as a scribe for Marisa
[2016-06-24] MEDS: HYDROcodone/APAP 5-325MG 1 EACH TAB PO PRN ×2 (14:56→21:48)
[2016-06-24] MEDS ORDERED: LEVOFLOXACIN 500 MG TAB PO SCH (15:00)
--- NOTE | 2016-06-24 18:45 | P.PN ---
Progress Note - Text Patient seen and reevaluated this evening. Her mother is at bedside. Patient is tolerating soft diet. She feels great. SHERRILL is now clear serous. Microbiology is growing multiple anaerobic organisms. Infectious disease team consulted. Tentative discharge home tomorrow once medically stable and correction of electrolytes. Follow-up in the office in 1 week.
[2016-06-24 19:58] LABS: ALT 24 U/L (9-52); AST 24 U/L (14-36); Alkaline Phosphatase 47 U/L (38-126); Anion Gap 8 mmol/L; Blood Urea Nitrogen 2 mg/dL (7-17); Calcium 7.6 mg/dL (8.4-10.2); Carbon Dioxide 23 mmol/L (22-30); Chloride 104 mmol/L (98-107); Glucose 106 mg/dL (74-99); Magnesium 1.9 mg/dL (1.6-2.3); Non-African American GFR(MDRD) >60 (>60 ml/min/1.73 sqM); Potassium 3.7 mmol/L (3.5-5.1); Sodium 135 mmol/L (137-145); Total Bilirubin 0.4 mg/dL (0.2-1.3); Total Protein 4.7 g/dL (6.3-8.2)
[2016-06-24] MEDS: MAGNESIUM SULFATE-D5W PMX 1 GM in DEXTROSE/WATER 1 100ML.BAG IVPB SCH ×2 (20:44→23:02)
[2016-06-24] MEDS: SODIUM PHOSPHATE 10 MMOL in SODIUM CHLORIDE 0.9% 250 ML IVPB SCH (21:50)
--- NOTE | 2016-06-24 23:23 | PN ---
DATE OF SERVICE: 06/24/2016 This 45-year-old woman who was admitted with abdominal distention and constipation had surgery. The patient is being closely monitored. Patient is able to tolerate p.o. fluids. SHERRILL drain has serous drainage. On exam, alert and oriented x3. Pulse is 115, blood pressure 109/67, respiration 16, temperature 99.2, pulse ox 98% on room air. HEENT: Conjunctivae normal. NECK: No jugular venous distention. CARDIOVASCULAR SYSTEM: S1, S2 muffled. RESPIRATORY: Breath sounds diminished at the bases. A few scattered rhonchi and crackles. ABDOMEN: Soft, non-tender. LEGS: ntd NERVOUS SYSTEM: No focal deficit. LABS: Sodium 130, potassium 3.7. Calcium is 7. Magnesium is 1.4. Phosphorus 1.7. ASSESSMENT: 1. Abdominal distention, constipation, vomiting as well as small bowel obstruction secondary to incarcerated right inguinal hernia, present on admission, status post laparoscopic reduction of the strangulated right inguinal hernia as well as bowel resection with the distal ileum. 2. Postoperative ileus. 3. Bilateral atelectasis, possibly. 4. Dilated gallbladder on the CT scan. 5. Increased white count, improved. 6. Dehydration with mild acute renal, present on admission, with prerenal factors. 7. Hyponatremia, mild. 8. Hypomagnesemia. 9. Hypophosphatemia. 10. Hypocalcemia, mild. 11. Anemia, macrocytic. 12. Increased random blood sugar. 13. History of hysterectomy for uterine cancer. 14. History of seizure disorder. 15. Mentally challenged. 16. FULL CODE. RECOMMENDATIONS AND DISCUSSION: I recommend to continue with the current medications, continue with the monitoring, symptomatic treatment. Otherwise, at this time I recommend DVT prophylaxis. Repeat electrolytes and replace as necessary. Further recommendations to follow. MTDD
[2016-06-25] MEDS: MAGNESIUM SULFATE-D5W PMX 1 GM in DEXTROSE/WATER 1 100ML.BAG IVPB SCH (00:34)
[2016-06-25] MEDS: SODIUM PHOSPHATE 10 MMOL in SODIUM CHLORIDE 0.9% 250 ML IVPB SCH ×2 (00:35→03:00)
[2016-06-25] MEDS: HEPARIN SODIUM,PORCINE 5,000 UNIT/ML 1 ML VIAL SQ SCH ×3 (00:37→17:08)
[2016-06-25] MEDS: 0.9% NACL WITH KCL 40 MEQ/L 1,000 ML IV SCH ×2 (08:00→17:10)
[2016-06-25] MEDS: SODIUM PHOSPHATE 10 MMOL in SODIUM CHLORIDE 0.9% 100 ML IVPB SCH ×3 (08:06→13:11)
[2016-06-25] MEDS: LEVETIRACETAM IV SCH ×2 (08:06→20:36)
[2016-06-25] MEDS: FAMOTIDINE 20 MG TAB PO SCH ×2 (08:08→20:41)
[2016-06-25] MEDS: PRIMIDONE 250 MG TAB PO SCH ×2 (08:35→20:41)
[2016-06-25] MEDS: carBAMazepine 200 MG TAB PO SCH ×4 (08:35→20:42)
[2016-06-25 08:59] LABS: CH 32.3; CHCM 33.9; HCT 36.7 % (34.0-46.0); HDW 2.43; HGB 12.8 gm/dL (11.4-16.0); Immature Gran Flag Slight; MCH 33.4 pg (25.0-35.0); MCHC 34.9 g/dL (31.0-37.0); MCV 95.8 fL (80.0-100.0); Mean Platelet Volume 7.7; RBC 3.83 m/uL (3.80-5.40); RDW 12.7 % (11.5-15.5); WBC 12.9 k/uL (3.8-10.6); WBC (Perox) 12.74
[2016-06-25 09:09] LABS: ALT 19 U/L (9-52); AST 34 U/L (14-36); Alkaline Phosphatase 36 U/L (38-126); Anion Gap 9 mmol/L; Blood Urea Nitrogen <2 mg/dL (7-17); Calcium 7.3 mg/dL (8.4-10.2); Carbon Dioxide 19 mmol/L (22-30); Chloride 109 mmol/L (98-107); Glucose 115 mg/dL (74-99); Non-African American GFR(MDRD) >60 (>60 ml/min/1.73 sqM); Phosphorous 3.5 mg/dL (2.5-4.5); Sodium 137 mmol/L (137-145); Total Bilirubin 0.7 mg/dL (0.2-1.3)
[2016-06-25 09:14] LABS: Potassium 3.9 mmol/L (3.5-5.1)
--- NOTE | 2016-06-25 09:22 | P.CONS ---
History of Present Illness - Reason for Consult Consult date: 06/25/16 Antibiotic recommendations based on wound culture - History of Present Illness This is a 45-year-old female with a past medical history significant for intellectual disability and uterine cancer status post hysterectomy. Patient presented to [facility] emergency center initially on June 18 with small bowel obstruction. She underwent laparoscopic reduction of strangulated right inguinal hernia, small bowel resection in the distal ileum on June [address] Disla. She has been progressing well in the postop period. She has a SHERRILL drain in place with significant output of clear serous fluid. Temperature maximum 100.3 in the past 24 hours. White count is at 10.4 , albumin 3.7, GFR greater than 60. Her urinalysis was cloudy with ketones 4+ bilirubin 1+. Patient is tolerating a soft diet. She did have a bowel movement yesterday. Wound culture showing gram-negative bacilli and anaerobic culture showing Clostridium septicum and anaerobic gram-positive bacilli. Sister is at the bedside and states that they would like patient discharge today if possible. Was informed that cultures are currently not completed. Review of Systems All systems: negative Constitutional: Denies chills, Denies fever Eyes: denies blurred vision, denies pain Ears, nose, mouth and throat: Denies headache, Denies sore throat Cardiovascular: Denies chest pain, Denies shortness of breath Respiratory: Denies cough Gastrointestinal: Reports abdominal pain, Denies diarrhea, Denies nausea, Denies vomiting Genitourinary: Denies dysuria, Denies hematuria Musculoskeletal: Denies myalgias Integumentary: Denies pruritus, Denies rash Neurological: Denies numbness, Denies weakness Psychiatric: Denies anxiety, Denies depression Endocrine: Denies fatigue, Denies weight change Past Medical History Past Medical History: Seizure Disorder Additional Past Medical History / Comment(s): Intellectual disability, uterine cancer status post hysterectomy not requiring chemotherapy or radiation therapy. History of Any Multi-Drug Resistant Organisms: None Reported Past Surgical History: Hysterectomy Past Anesthesia/Blood Transfusion Reactions: No Reported Reaction Past Psychological History: No Psychological Hx Reported Smoking Status: Never smoker Past Alcohol Use History: None Reported Additional Past Alcohol Use History / Comment(s): Patient has been a lifelong nonsmoker, no illicit drug use or alcohol use. she is currently living at home with her mother and sister helps. Patient does have a therapy dog. Past Drug Use History: None Reported - Past Family History Mother Family Medical History: No Reported History Medications and Allergies Home Medications Medication Instructions Recorded Confirmed Type LORazepam [Ativan] 1 mg PO Q6H PRN 06/15/16 06/16/16 History Primidone [Mysoline] 250 mg PO BID 06/15/16 06/16/16 History carBAMazepine [TEGretol XR] 400 mg PO Q12HR 06/15/16 06/16/16 History levETIRAcetam [Keppra] 500 - 1,000 mg PO Q12HR 06/15/16 06/16/16 History Allergies Allergy/AdvReac Type Severity Reaction Status Date / Time No Known Allergies Allergy Verified 06/16/16 19:06 Physical Exam Vitals: Vital Signs Temp Pulse Pulse Resp BP Pulse Ox 06/25/16 07:00 98.7 F 111 H 20 107/62 96 06/25/16 00:18 98.1 F 06/24/16 22:49 100.3 F H 108 H 18 110/66 95 06/24/16 16:00 99 16 06/24/16 15:00 99.2 F 99 16 109/67 98 Intake and Output 06/24/16 06/25/16 06/25/16 22:59 06:59 14:59 Intake Total 240 540 Balance 240 540 Intake: Oral 240 540 Other: Voiding Method Toilet Toilet # Voids 2 3 Weight 90.718 kg Gen: This is a 45-year-old female. Patient is found walking in the hallway appears to be in no acute distress. HEENT: Head is atraumatic, normocephalic. Pupils equal, round. Sclerae is anicteric. Conjunctiva pink. Mucous membranes of the mouth are moist. Dentition is in good order. NECK: Supple. No JVD. No lymphadenopathy. No thyromegaly. LUNGS: Clear to auscultation. No wheezes or rhonchi. No intercostal retractions. HEART: Regular rate and rhythm. No murmur. ABDOMEN: Soft. Bowel sounds are present. No masses. No tenderness. SHERRILL drain draining clear serous fluid. EXTREMITIES: Trace bilateral pedal edema. No calf tenderness. NEUROLOGICAL: Patient is awake, alert and oriented x2. Cranial nerves 2 through 12 are grossly intact. Results Results: Laboratory Results WBC 12.9 k/uL (3.8-10.6) H 06/25/16 08:31 RBC 3.83 m/uL (3.80-5.40) 06/25/16 08:31 Hgb 12.8 gm/dL (11.4-16.0) 06/25/16 08:31 Hct 36.7 % (34.0-46.0) 06/25/16 08:31 MCV 95.8 fL (80.0-100.0) 06/25/16 08:31 MCH 33.4 pg (25.0-35.0) 06/25/16 08:31 MCHC 34.9 g/dL (31.0-37.0) 06/25/16 08:31 RDW 12.7 % (11.5-15.5) 06/25/16 08:31 Plt Count 198 k/uL (150-450) 06/25/16 08:31 Neutrophils % 82 % 06/24/16 07:32 Lymphocytes % 8 % 06/24/16 07:32 Monocytes % 6 % 06/24/16 07:32 Eosinophils % 1 % 06/24/16 07:32 Basophils % 1 % 06/24/16 07:32 Neutrophils # 8.6 k/uL (1.3-7.7) H 06/24/16 07:32 Lymphocytes # 0.9 k/uL (1.0-4.8) L 06/24/16 07:32 Monocytes # 0.6 k/uL (0-1.0) 06/24/16 07:32 Eosinophils # 0.1 k/uL (0-0.7) 06/24/16 07:32 Basophils # 0.1 k/uL (0-0.2) 06/24/16 07:32 Manual Slide Review Performed 06/21/16 07:55 Toxic Granulation Present 06/21/16 07:55 RBC Morphology Normal 06/21/16 07:55 Macrocytosis Slight 06/23/16 06:56 Sodium 135 mmol/L (137-145) L 06/24/16 19:28 Potassium 3.7 mmol/L (3.5-5.1) 06/24/16 19:28 Chloride 104 mmol/L (98-107) 06/24/16 19:28 Carbon Dioxide 23 mmol/L (22-30) 06/24/16 19:28 Anion Gap 8 mmol/L 06/24/16 19:28 BUN 2 mg/dL (7-17) L 06/24/16 19:28 Creatinine 0.50 mg/dL (0.52-1.04) L 06/24/16 19:28 Est GFR (MDRD) Af Amer >60 (>60 ml/min/1.73 sqM) 06/24/16 19:28 Est GFR (MDRD) Non-Af >60 (>60 ml/min/1.73 sqM) 06/24/16 19:28 Glucose 106 mg/dL (74-99) H 06/24/16 19:28 Calcium 7.6 mg/dL (8.4-10.2) L 06/24/16 19:28 Phosphorus 2.0 mg/dL (2.5-4.5) L 06/24/16 19:28 Magnesium 1.9 mg/dL (1.6-2.3) 06/24/16 19:28 Total Bilirubin 0.4 mg/dL (0.2-1.3) 06/24/16 19:28 AST 24 U/L (14-36) 06/24/16 19:28 ALT 24 U/L (9-52) 06/24/16 19:28 Alkaline Phosphatase 47 U/L (38-126) 06/24/16 19:28 Total Protein 4.7 g/dL (6.3-8.2) L 06/24/16 19:28 Albumin 2.2 g/dL (3.5-5.0) L 06/24/16 19:28 Amylase 36 U/L (30-110) 06/16/16 19:15 Lipase 50 U/L (23-300) 06/16/16 19:15 Urine Color Yellow 06/18/16 12:15 Urine Appearance Cloudy (Clear) H 06/18/16 12:15 Urine pH 6.0 (5.0-8.0) 06/18/16 12:15 Ur Specific [place] 1.031 (1.001-1.035) 06/18/16 12:15 Urine Protein 1+ (Negative) H 06/18/16 12:15 Urine Glucose (UA) Negative (Negative) 06/18/16 12:15 Urine Ketones 4+ (Negative) H 06/18/16 12:15 Urine Blood Negative (Negative) 06/18/16 12:15 Urine Nitrite Negative (Negative) 06/18/16 12:15 Urine Bilirubin 1+ (Negative) H 06/18/16 12:15 Urine Urobilinogen 2.0 mg/dL (<2.0) 06/18/16 12:15 Ur Leukocyte Esterase Negative (Negative) 06/18/16 12:15 Urine RBC 3 /hpf (0-5) 06/18/16 12:15 Urine WBC 5 /hpf (0-5) 06/18/16 12:15 Ur Squamous Epith Cells 5 /hpf (0-4) H 06/18/16 12:15 Urine Bacteria Occasional /hpf (None) H 06/18/16 12:15 Urine Mucus Rare /hpf (None) H 06/18/16 12:15 Urine HCG, Qual Not Detected (Not Detectd) 06/18/16 12:15 Carbamazepine 6.9 ug/mL 06/17/16 07:06 Levetiracetam 5.5 ug/mL (3.0-60.0) 06/19/16 08:30 CBC & Chem 7: 06/24/16 07:32 06/24/16 19:28 Labs: Abnormal Lab Results - Last 24 Hours (Table) 06/24/16 06/24/16 06/24/16 Range/Units 07:32 07:32 19:28 RBC 3.51 L (3.80-5.40) m/uL Neutrophils # 8.6 H (1.3-7.7) k/uL Lymphocytes # 0.9 L (1.0-4.8) k/uL Sodium 135 L 135 L (137-145) mmol/L Chloride 108 H (98-107) mmol/L Carbon Dioxide 21 L (22-30) mmol/L BUN 3 L 2 L (7-17) mg/dL Creatinine 0.45 L 0.50 L (0.52-1.04) mg/dL Glucose 106 H (74-99) mg/dL Calcium 7.0 L 7.6 L (8.4-10.2) mg/dL Phosphorus 2.0 L (2.5-4.5) mg/dL Total Protein 4.7 L (6.3-8.2) g/dL Albumin 2.2 L (3.5-5.0) g/dL Microbiology - Last 24 Hours (Table) 06/20/16 16:38 Gram Stain - Final Incision Tissue Culture - Final Klebsiella oxytoca Rothia dentocariosa Streptococcus anginosus group Alpha Hemolytic Streptococcus 06/20/16 16:38 Anaerobic Culture - Preliminary Incision Clostridium septicum Anaerobic Gm Positive Bacill Assessment and Plan Plan: This is a 45-year-old female who presented to the hospital with a small bowel obstruction status post surgical intervention and is doing well in the postop period. Wound cultures currently showing Klebsiella oxytoca, brought via dental car Coy, Streptococcus anginal subgroup, alphahemolytic streptococcus. Anaerobic culture is showing Clostridium spectacle, anaerobic gram-positive bacilli. Antibiotics for home will be addressed. Continue supportive care. Further recommendations as patient progresses. The above dictated assessment and findings were discussed with Dr. Hu. The impression and plan of care have been directed as dictated. Jeni Mcgowan nurse practitioner acting as scribe for Dr. Hu. Time with Patient: Greater than 30
[2016-06-25 10:10] LABS: Add Differential Manual Differential
[2016-06-25 10:13] LABS: Nucleated Red Blood Cells 0 /100 WBC (0-0)
[2016-06-25 10:15] LABS: Band Neutrophils % 1.5 %; Manual Review Performed; Myelocytes % 0.5 %; Total Cells Counted 200
[2016-06-25 12:38] LABS: Appearance,Urine Clear (Clear); Bilirubin,Urine Negative (Negative); Glucose,Urine (UA) Negative (Negative); Ketones,Urine Negative (Negative); Leukocyte Esterase,Urine Negative (Negative); Nitrite,Urine Negative (Negative); PH, Urine 5.5 (5.0-8.0); Protein,Urine Negative (Negative); Specific Gravity,Urine 1.003 (1.001-1.035); UA Billing (MACRO vs. MICRO) CHEM; Urobilinogen,Urine <2.0 mg/dL (<2.0)
[2016-06-25] MEDS: HYDROcodone/APAP 5-325MG 1 EACH TAB PO PRN ×2 (13:12→21:31)
[2016-06-25] MEDS: AMOXIC-POT CLAV 875-125MG 1 EACH TAB PO STA ×2 (13:56→13:57)
--- NOTE | 2016-06-25 15:47 | P.PN ---
Subjective 45 -year-old female seen this morning on rounds is currently sitting up in a chair and mother at bedside. Patient states passing gas had a bowel movement. No reports of nausea vomiting. Lauri-Omer drain in place serous drainage noted. Patient currently is tolerating a diet. Did note that the microbiology growing multiple anaerobic organisms infectious disease consultation recommendations reviewed. Did explain to the mother at the bedside that we'll await infectious diseases recommendations possible discharge in the next 24-48 hours pending the recommendations Objective - Vital Signs Vital signs: Vital Signs Temp 98.7 F 06/25/16 07:00 Pulse 111 H 06/25/16 08:00 Resp 20 06/25/16 08:00 BP 107/62 06/25/16 07:00 Pulse Ox 96 06/25/16 07:00 Intake & Output 06/24/16 06/25/16 06/25/16 18:59 06:59 18:59 Intake Total 8689 266 0577 Output Total 203 Balance 1463 791 6372 Weight 90.718 kg 90.718 kg Intake: IV 750 759 0.9% NaCl with KCl 40 Meq 750 759 /l 1,000 ml @ 100 mls/hr IV .Q10H JACY Rx#: [id number] Intake, IV Titration 100 150 Amount Levofloxacin 500Mg-D5w 100 Pmx 500 mg In Dextrose/ Water 1 100ml.bag @ 100 mls/hr IVPB Q24H JACY Rx#: [id number] Sodium Phosphate 10 mmol 150 In Sodium Chloride 0.9% 100 ml @ 50 mls/hr IVPB Q2H JACY Rx#:[id number] Oral 980 780 540 Output: Urine 200 Stool 3 Other: Voiding Method Toilet Toilet Toilet # Voids 5 3 6 # Bowel Movements 1 - Exam Physical exam 45-year-old female currently being seen on rounds this morning is sitting up in chair Mother at the bedside denying any nausea vomiting frequent stooling Lungs essentially clear with adequate air movement currently on room air no cough noted no shortness of breath Heart S1-S2 audible and regular no murmur noted denying chest pain Abdomen slight surgical tenderness dressing dry to surgical site states has had 1 bowel movements urinating no difficulty tolerating the diet Lauri-Omer drain serous drainage states passing gas tolerating a diet Extremities no evidence of edema to the upper or lower extremities - Labs CBC & Chem 7: 06/25/16 08:31 06/25/16 08:31 Labs: Abnormal Lab Results - Last 24 Hours (Table) 06/24/16 06/25/16 06/25/16 Range/Units 19:28 08:31 08:31 WBC 12.9 H (3.8-10.6) k/uL Neutrophils # (Manual) 9.0 H (1.3-7.7) k/uL Monocytes # (Manual) 1.3 H (0-1.0) k/uL Sodium 135 L (137-145) mmol/L Chloride 109 H (98-107) mmol/L Carbon Dioxide 19 L (22-30) mmol/L BUN 2 L <2 L (7-17) mg/dL Creatinine 0.50 L 0.41 L (0.52-1.04) mg/dL Glucose 106 H 115 H (74-99) mg/dL Calcium 7.6 L 7.3 L (8.4-10.2) mg/dL Phosphorus 2.0 L (2.5-4.5) mg/dL Alkaline Phosphatase 36 L (38-126) U/L Total Protein 4.7 L 5.0 L (6.3-8.2) g/dL Albumin 2.2 L 2.2 L (3.5-5.0) g/dL Microbiology - Last 24 Hours (Table) 06/20/16 16:38 Gram Stain - Final Incision Tissue Culture - Final Klebsiella oxytoca Rothia dentocariosa Streptococcus anginosus group Alpha Hemolytic Streptococcus 06/20/16 16:38 Anaerobic Culture - Preliminary Incision Clostridium septicum Anaerobic Gm Positive Bacill Assessment and Plan Plan: Impression Present on admission right lower abdominal pain with a sensation of nausea suspect due to incarcerated right inguinal hernia causing a mechanical small bowel obstruction Present on admission CAT scan of the abdomen pelvis with IV and oral contrast shows cholecystitis Present on admission CAT scan of the abdomen pelvis with IV and oral contrast shows a incarcerated right inguinal hernia causing a mechanical small bowel obstruction History of a seizure disorder Present on admission leukocytosis the low-grade temp Abdominal x-ray on the fourth suggest high-grade small bowel obstruction no free air Postop June 20 Laparoscopic reduction of strangulate right inguinal hernia, small bowel resection distal ileum Operative Findings: Ischemic tissue necrosis small bowel along the right renal indirect hernia, small bowel resected for necrosis of small bowel, placement of SHERRILL drain for contaminated case Microbiology is growing multiple anaerobic organisms Plan Diet has been advanced Await infectious diseases recommendations Increase ambulation Cholecystitis will be addressed in the outpatient setting DVT and GI prophylaxis Pain control The above dictated assessment and findings were discussed with dr Cunningham. Impression and the plan of care have been dictated as directed. Zulma Olmstead nurse practitioner acting as a scribe for Marisa
[2016-06-25 16:33] VITALS: BP 97/61; PULSE 107; RESP 18; TEMP 99.2
--- NOTE | 2016-06-25 19:55 | P.PN ---
Progress Note - Text Patient seen and evaluated. SHERRILL drain is discontinued with only serous drainage. Mother and sister at bedside confirms that Dr. Hu has started her on antibiotic at home.
[2016-06-25] MEDS ORDERED: AMOXIC-POT CLAV 875-125MG 1 EACH TAB PO STA (21:12)
--- NOTE | 2016-06-25 22:39 | PN ---
DATE OF SERVICE: 06/25/2016 This 45-year-old woman who was admitted with abdominal distention, constipation, vomiting as well as small bowel obstruction had surgery. The patient is being closely monitored at this time. Patient has some SHERRILL drainage at this time. The cultures are also showing multiple organisms, including klebsiella, rothia, streptococcus, alpha hemolytic streptococcus, Clostridium septicum and anaerobic Gram-positive bacilli, also. Infectious Disease is following the patient closely. On exam, alert and oriented x3. Pulse is 107, blood pressure 97/61, respiration 18, temperature 99.2, pulse ox 97% on room air. HEENT: Conjunctivae normal. NECK: No jugular venous distention. CARDIOVASCULAR SYSTEM: S1, S2 muffled. RESPIRATORY SYSTEM: Breath sounds diminished at the bases. No rhonchi. No crackles. ABDOMEN: Soft. Status post surgery. LEGS: No edema. No swelling. NERVOUS SYSTEM: No focal deficit. LABS: WBC 12.9. Sodium 137. Calcium 7.3. Albumin is 2.2. ASSESSMENT: 1. Abdominal distention, constipation, vomiting as well as small bowel obstruction secondary to incarcerated right inguinal hernia, present on admission, status post laparoscopic reduction of the strangulated right inguinal hernia as well as bowel resection with distal ileum. 2. Postoperative ileus, improved. 3. Bilateral atelectasis, possibly. 4. Multiple organisms in the wound culture. 5. SHERRILL drain. 6. Dilated gallbladder on the CT scan. 7. Increased white count, improved. 8. Dehydration with mild acute renal failure, present on admission, with prerenal factors. 9. Hyponatremia, mild, hypovolemic. 10. Hypomagnesemia. 11. Hypophosphatemia. 12. Hypocalcemia, mild. 13. Anemia, macrocytic. 14. Increased random blood sugar. 15. History of hysterectomy for uterine cancer. 16. History of seizure disorder. 17. Mentally challenged. 18. FULL CODE. RECOMMENDATIONS AND DISCUSSION: I recommend to continue with the current medications, continue with symptomatic treatment. Continue with fluid/electrolyte balance monitoring. Continue with antibiotics per ID. Continue to monitor. Further recommendations to follow. Closely follow with Surgery.
--- NOTE | 2016-06-25 22:57 | P.CON ---
Consult Note - . Consult date: 06/25/16 Assessment/Plan:: This is a 45-year-old female with a past medical history significant for intellectual disability and uterine cancer status post hysterectomy. Patient presented to [facility] emergency center initially on June 18 with small bowel obstruction. She underwent laparoscopic reduction of strangulated right inguinal hernia, small bowel resection in the distal ileum on June [address] Disla. She has been progressing well in the postop period. She has a SHERRILL drain in place with significant output of clear serous fluid. Temperature maximum 100.3 in the past 24 hours. White count is at 10.4 , albumin 3.7, GFR greater than 60. Her urinalysis was cloudy with ketones 4+ bilirubin 1+. Patient is tolerating a soft diet. She did have a bowel movement yesterday. Wound culture showing gram-negative bacilli and anaerobic culture showing Clostridium septicum and anaerobic gram-positive bacilli. Sister is at the bedside and states that they would like patient discharge today if possible. Was informed that cultures are currently not completed. Please see the consult note is dictated by nurse practitioner Mrs. Jeni Mcgowan At this time for further cultures now to become available. Evidence of the anaerobic gram-negative bacilli of a Clostridium species. And then Klebsiella, strep, Rothia species often the abdominal wound. If this point in time she is improved and ready for discharge to home. She will be altered to oral antibiotic therapy with Augmentin 875/125 one tablet orally twice per day for 10 days. Follow-up with surgeon the outpatient setting. Likely have her SHERRILL drain removed and then discharged home this evening. I agree with evaluation, assessment and plan as dictated by nurse practitioner Mrs. Jeni Mcgowan.
--- NOTE | 2016-06-27 21:30 | P.OP ---
Date of Procedure: 06/20/16 Description of Procedure: SURGEON: ESTELA ASHBY MD PREOPERATIVE DIAGNOSIS: 1. Small bowel obstruction, complete. 2. Right inguinal hernia, initial. 3. Seizure disorder. 4. Cognitive delay. 5. Chronic constipation. POSTOPERATIVE DIAGNOSES: 1. Small bowel obstruction, complete. 2. Right inguinal hernia, initial, strangulation, indirect. 3. Seizure disorder. 4. Cognitive delay. 5. Chronic constipation. OPERATION: 1. Laparoscopic enterectomy distal ileum with primary anastomosis. 2. Laparoscopic repair of strangulated initial right inguinal hernia repair via transabdominal approach. 3. Abdominal lavage, 3-L. ANESTHESIA: General with local anesthetic. ESTIMATED BLOOD LOSS: 25 mL. SPECIMENS REMOVED: Small bowel, hernia sac. COMPLICATIONS: None. CONDITION: Stable. OPERATIVE FINDINGS: 1. Ischemic tissue necrosis small bowel from indirect right inguinal hernia 2. Small bowel resected for necrosis 3. Placement of SHERRILL drain for contaminated case INDICATIONS: The patient is a 45-year-old female who presents with chronic constipation including small bowel obstruction of the right lower quadrant. Clinical findings were consistent with incarcerated right inguinal hernia. Surgical options including laparoscopic versus open inguinal hernia repair was reviewed. Benefits and risks including bleeding, infection, recurrence, small bowel resection and possible open technique were reviewed at length with the patient's family who gave informed consent. DESCRIPTION: The patient was brought into the operating room, laid in supine position. After general induction, a Regalado was placed. The abdomen was prepped and draped in standard sterile fashion. Prior to incision, a timeout protocol was confirmed by the surgical team regarding the patient's name including procedures to be performed. Preoperative medications including bilateral SCDs were placed. Initial attention was brought to the left upper quadrant whereby a 0 degree 5 mm laparoscopic trocar entry was performed entering the peritoneal cavity. Diagnostic laparoscopy demonstrated no injury to bowel, viscera or mesentery. The abdomen was insufflated to 15 mmHg of pressure which she tolerated well. Next, the patient was placed in Trendelenburg position whereby closer inspection of the intraabdominal contents demonstrated small bowel incarcerated along the right inguinal hernia. An indirect right inguinal hernia was confirmed. A 5 mm and 11 mm port were placed along the left lateral abdominal wall, Using atraumatic graspers, the small bowel was carefully reduced into abdominal cavity after incising the hernia fascia. The hernia sac was evaginated into the abdomen. The area of incarceration of the small bowel was necrotic consistent with strangulated hernia. Along the right lower abdominal wall, a 12 mm port was placed. Another 5-mm port was placed along the pubis. Approximately 10 cm small bowel was resected using 60 mm zepeda load using Covidien stapler. A [id number] primary anastomosis was performed. A stay stitch using 3-0 silk was placed for anti-tension along the seat of the anastomosis. As spillage occurred of the small bowel contents, the case was deemed contaminated. The peritoneum of the hernia sac was scored using electro- Bovie cautery. The hernia sac was then dissected and resected. Once completely excised, the specimen was passed off for further pathological analysis. The hernia defect was captured using imaging. Next, the peritoneum was closed in a pursestring fashion using a Covidien Endo stitch and 2-0 Surgidac and Lapra-Ty. Intraoperative films were obtained for the final repair. The abdominal cavity was thoroughly irrigated over 2 L of warm normal saline solution. Along the right lower quadrant port, a #19 round Lauri-Omer drain was placed along the pelvis given moderate irrigation. The drain was tacked using 2-0 nylon. Bulb suction was placed. Aerobic and anaerobic cultures were also sent. All instruments and pneumoperitoneum were evacuated from the abdominal cavity. The 11 mm trocar site was closed using deep subcutaneous suture of 3-0 Vicryl. The rest of incisions were reapproximated using 4-0 Monocryl in a subcuticular fashion. Local anesthetic using 0.25% Marcaine with epinephrine was placed for postop analgesia. Similarly, bilateral groin field block was placed. The skin was cleansed and Dermabond was applied. All instruments and pneumoperitoneum were removed from the abdominal cavity. The Regalado catheter was maintained. At the end of the procedure, needle, sponge, and instrument count had been verified correct by manager surgical. The patient had tolerated the procedure well and taken to postanesthesia care unit in stable condition. The patient's family was pleased with the level of care.
--- NOTE | 2016-07-01 17:44 | DS ---
DATE OF ADMISSION: 06/16/2016 DATE OF DISCHARGE: 06/25/2016 FINAL DIAGNOSES: 1. Abdominal distention, constipation, vomiting as well as small bowel obstruction secondary to incarcerated right inguinal hernia, present on admission, status post laparoscopic reduction of the strangulated right inguinal hernia as well as bowel resection with distal ileum. 2. Postoperative ileus, improved. 3. Bilateral atelectasis possibly, improved. 4. Multiple organisms in the wound culture. 5. SHERRILL drain. 6. Dilated gallbladder on the CT scan. 7. Increased white count, improved. 8. Dehydration with mild acute renal failure, present on admission, with prerenal factors. 9. Hyponatremia, mild, hypovolemic. 10. Hypomagnesemia. 11. Hypophosphatemia. 12. Hypocalcemia, mild. 13. Anemia, macrocytic. 14. Increased random blood sugar. 15. History of hysterectomy and uterine cancer. 16. History of seizure disorder. 17. Mentally challenged. 18. FULL CODE. DISCHARGE DISPOSITION: The patient will be discharged in stable condition with guarded prognosis. HISTORY OF PRESENT ILLNESS: This 45-year-old woman with a past medical history of multiple medical problems, admitted with abdominal distention, constipation and features of intestinal obstruction secondary to incarcerated right inguinal hernia. Dr. Cunningham performed surgery. Please refer to Dr. Garcia's detailed reports for further details. Treated symptomatically. Patient was also started on antibiotics. On exam, vitals are stable. CARDIOVASCULAR SYSTEM: S1, S2 muffled. ABDOMEN: Soft. NERVOUS SYSTEM: No focal deficit. DISCHARGE ADVICE AND MEDICATIONS: 1. Diet cardiac. 2. Activity limited until followup. 3. Follow up with Dr. Shin in 2 to 3 days. 4. Follow up with Dr. Cunningham as advised. 5. Follow up with Dr. Hu as advised. 6. Augmentin 875 mg p.o. b.i.d. for 10 days. 7. Pepcid 20 mg p.o. b.i.d. 8. Lasix 20 mg p.o. daily. 9. [place] 5 mg q.6 p.r.n. 10. Ativan 1 mg q.6 p.r.n. 11. Mysoline 250 mg p.o. b.i.d. 12. Tegretol XR 400 mg p.o. b.i.d. 13. Keppra 500 to 1000 mg p.o. b.i.d.
== END 2016-06-25 21:47 | disposition home health service (06) | DRG 348 ==
LOC: EC 16:57 → 5MS5E 21:58
PROVIDERS: ADMIT Internal Medicine; ATTEND Internal Medicine
PROC: 0D9670Z Drainage of Stomach with Drainage Device, Via Natural or Artificial Opening (ICD-10-PCS; principal; 2016-06-16)
PROC: 0DBB4ZZ Excision of Ileum, Percutaneous Endoscopic Approach (ICD-10-PCS; 2016-06-20)
PROC: 0YQ54ZZ Repair Right Inguinal Region, Percutaneous Endoscopic Approach (ICD-10-PCS; 2016-06-20)
DX: K40.40 Unilateral inguinal hernia, with gangrene, not specified as recurrent (principal); N17.9 Acute kidney failure, unspecified; E87.1 Hypo-osmolality and hyponatremia; K56.7 Ileus, unspecified; E83.42 Hypomagnesemia; E83.39 Other disorders of phosphorus metabolism; J98.11 Atelectasis; K91.89 Other postprocedural complications and disorders of digestive system; K81.9 Cholecystitis, unspecified; E83.51 Hypocalcemia; E86.0 Dehydration; D53.9 Nutritional anemia, unspecified; E86.1 Hypovolemia; F79 Unspecified intellectual disabilities; G40.909 Epilepsy, unspecified, not intractable, without status epilepticus; Z90.710 Acquired absence of both cervix and uterus; Z85.42 Personal history of malignant neoplasm of other parts of uterus; Z79.899 Other long term (current) drug therapy; Y83.2 Surgical operation with anastomosis, bypass or graft as the cause of abnormal reaction of the patient, or of later complication, without mention of misadventure at the time of the procedure; Y92.230 Patient room in hospital as the place of occurrence of the external cause
CPT/HCPCS: 36415; 71010; 71020; 74000; 74020; 74177; 76705; 80048; 80053; 80156; 80177; 81001; 81003; 81025; 82150; 83690; 83735; 84100; 84132; 85025; 87040; 87070; 87075; 87077; 87086; 87186; 87205; 88302; 88304; 88307; 93005; 95816; 96361; 96374; 96375; 99285

== ENCOUNTER 2017-06-02 01:08 | Emergency (ER) | payer MEDICARE, OTHER ==
[2017-06-02] MEDS ORDERED: SODIUM CHLORIDE 0.9% 500 ML IV STA (01:29)
[2017-06-02] MEDS ORDERED: LORazepam 2 MG/ML INJ IV STA (01:29)
[2017-06-02 01:54] LABS: Basophils % (A) 0 %; Eosinophils # (A) 0.1 k/uL (0-0.7); Eosinophils % (A) 1 %; HCT 42.7 % (34.0-46.0); HGB 15.1 gm/dL (11.4-16.0); Lymphocytes # (A) 0.5 k/uL (1.0-4.8); Lymphocytes % (A) 8 %; MCH 32.4 pg (25.0-35.0); MCHC 35.3 g/dL (31.0-37.0); MCV 91.8 fL (80.0-100.0); Mean Platelet Volume 8.3; Monocytes # (A) 0.3 k/uL (0-1.0); Monocytes % (A) 5 %; Neutrophils # (A) 5.1 k/uL (1.3-7.7); Neutrophils % (A) 84 %; Platelet Count 119 k/uL (150-450); RBC 4.66 m/uL (3.80-5.40); RDW 12.8 % (11.5-15.5); WBC 6.1 k/uL (3.8-10.6)
[2017-06-02 02:07] LABS: ALT 29 U/L (9-52); AST 21 U/L (14-36); Albumin 3.6 g/dL (3.5-5.0); Alkaline Phosphatase 81 U/L (38-126); Anion Gap 10 mmol/L; Blood Urea Nitrogen 13 mg/dL (7-17); Calcium 8.9 mg/dL (8.4-10.2); Carbamazepine (Tegretol) <3.0 ug/mL; Carbon Dioxide 25 mmol/L (22-30); Chloride 107 mmol/L (98-107); Glucose 116 mg/dL (74-99); Sodium 142 mmol/L (137-145); Total Bilirubin 0.4 mg/dL (0.2-1.3); Total Protein 6.3 g/dL (6.3-8.2)
[2017-06-02 02:10] LABS: Amorphous Sediment,Urine Rare /hpf; Appearance,Urine Turbid (Clear); Bacteria,Urine Many /hpf; Bilirubin,Urine Negative (Negative); Blood,Urine Small (Negative); Color,Urine Yellow; Glucose,Urine (UA) Negative (Negative); Ketones,Urine Negative (Negative); Leukocyte Esterase,Urine Large (Negative); Nitrite,Urine Negative (Negative); Protein,Urine Negative (Negative); RBC,Urine 9 /hpf (0-5); Specific Gravity,Urine 1.004 (1.001-1.035); Squamous Epithelial Cell,Urine 1 /hpf (0-4); Urobilinogen,Urine <2.0 mg/dL (<2.0); WBC,Urine 38 /hpf (0-5)
--- NOTE | 2017-06-02 02:12 | ED ---
General Adult HPI - General Chief complaint: Seizure Stated complaint: Seizure Time Seen by Provider: 06/02/17 01:10 Source: patient, family, RN notes reviewed Mode of arrival: EMS Limitations: no limitations - History of Present Illness Initial comments: 46-year-old female presents with chief complaint of seizure. Patient has history of seizures patient take seizure medications. Patient was in her bed when she had a seizure tonight. Patient's mother witnessed the seizure states exactly like normal generalized movements. It lasted for a little while. Patient was quiet when she woke up and now she is return to normal. Patient seizure medication she has been taking. Mom states seizures happen with stressful situations and she has recently moved. There is been no other symptoms and the patient. she has no complaints at this time. There is no trauma or injury during exam. Patient denies any recent fever, chills, shortness of breath, chest pain, back pain, abdominal pain, nausea vomiting, numbness or tingling, dysuria or hematuria, constipation or diarrhea, headaches or visual changes, or any other current symptoms. - Related Data Home Medications Medication Instructions Recorded Confirmed LORazepam [Ativan] 1 mg PO Q6H PRN 06/15/16 06/16/16 Primidone [Mysoline] 250 mg PO BID 06/15/16 06/16/16 carBAMazepine [TEGretol XR] 400 mg PO Q12HR 06/15/16 06/16/16 levETIRAcetam [Keppra] 500 - 1,000 mg PO Q12HR 06/15/16 06/16/16 Previous Rx's Medication Instructions Recorded Hydrocodone/Acetaminophen [[place] 1 - 2 each PO Q6HR PRN #30 tab 06/22/16 5-325] Amoxic-Pot Clav 875-125Mg 1 tab PO Q12HR #20 tablet 06/25/16 [Augmentin 875-125] Famotidine [Pepcid] 20 mg PO BID tab 06/25/16 Furosemide [Lasix] 20 mg PO DAILY #5 tablet 06/27/16 Omeprazole 40 mg PO DAILY #90 capsule. 07/02/16 Polyethylene Glycol 3350 [Miralax] 17 gm PO DAILY PRN #255 gm 07/02/16 Sulfamethox-Tmp 800-160Mg [Bactrim 1 each PO Q12HR #14 tab 06/02/17 DS 800-160 mg] Allergies Allergy/AdvReac Type Severity Reaction Status Date / Time No Known Allergies Allergy Verified 06/16/16 19:06 Review of Systems ROS Statement: Those systems with pertinent positive or pertinent negative responses have been documented in the HPI. ROS Other: All systems not noted in ROS Statement are negative. Past Medical History Past Medical History: Seizure Disorder Additional Past Medical History / Comment(s): Intellectual disability, uterine cancer status post hysterectomy not requiring chemotherapy or radiation therapy. History of Any Multi-Drug Resistant Organisms: None Reported Past Surgical History: Hysterectomy Past Anesthesia/Blood Transfusion Reactions: No Reported Reaction Past Psychological History: No Psychological Hx Reported Smoking Status: Never smoker Past Alcohol Use History: None Reported Past Drug Use History: None Reported - Past Family History Mother Family Medical History: No Reported History General Exam Limitations: no limitations General appearance: alert Head exam: Present: atraumatic, normocephalic, normal inspection ENT exam: Present: normal exam, mucous membranes moist Neck exam: Present: normal inspection. Absent: tenderness, meningismus, lymphadenopathy Respiratory exam: Present: normal lung sounds bilaterally. Absent: respiratory distress, wheezes, rales, rhonchi, stridor Cardiovascular Exam: Present: regular rate, normal rhythm, normal heart sounds. Absent: systolic murmur, diastolic murmur, rubs, gallop, clicks GI/Abdominal exam: Present: soft, normal bowel sounds. Absent: distended, tenderness, guarding, rebound, rigid Neurological exam: Present: alert, oriented X3, reflexes normal. Absent: motor sensory deficit Psychiatric exam: Present: normal affect, normal mood Skin exam: Present: warm, dry, intact, normal color. Absent: rash Course Vital Signs 06/02/17 01:29 Temperature 99.5 F Pulse Rate 80 Respiratory 19 Rate Blood Pressure 123/67 O2 Sat by Pulse 96 Oximetry EKG Findings - EKG Comments: EKG Findings:: sinus tachycardia, 101 bpm, normal axis, no atopy, no S-T depressions or elevations, Medical Decision Making - Medical Decision Making 46-year-old female presents with chief complaint of seizure. Patient has a history of seizures and states this is much like her normal seizure. Patient started with a level is less than 3.0 however per family and they're currently weaning the patient off her Tegretol. At this time patient does appear to have UTI we will start her on medication for this. This time she was given Ativan. Patient has been seizure-free here. This time we discussed continued her neurologist. We discussed return parameters all questions. Patient that she understood and she is given this plan. All questions answered. She will be discharged. - Lab Data Result diagrams: 06/02/17 01:45 06/02/17 01:45 Lab Results 06/02/17 06/02/17 06/02/17 Range/Units 01:45 01:45 02:00 WBC 6.1 (3.8-10.6) k/uL RBC 4.66 (3.80-5.40) m/uL Hgb 15.1 (11.4-16.0) gm/dL Hct 42.7 (34.0-46.0) % MCV 91.8 (80.0-100.0) fL MCH 32.4 (25.0-35.0) pg MCHC 35.3 (31.0-37.0) g/dL RDW 12.8 (11.5-15.5) % Plt Count 119 L (150-450) k/uL Neutrophils % 84 % Lymphocytes % 8 % Monocytes % 5 % Eosinophils % 1 % Basophils % 0 % Neutrophils # 5.1 (1.3-7.7) k/uL Lymphocytes # 0.5 L (1.0-4.8) k/uL Monocytes # 0.3 (0-1.0) k/uL Eosinophils # 0.1 (0-0.7) k/uL Basophils # 0.0 (0-0.2) k/uL Sodium 142 (137-145) mmol/L Potassium 4.0 (3.5-5.1) mmol/L Chloride 107 (98-107) mmol/L Carbon Dioxide 25 (22-30) mmol/L Anion Gap 10 mmol/L BUN 13 (7-17) mg/dL Creatinine 0.60 (0.52-1.04) mg/dL Est GFR (CKD-EPI)AfAm >90 (>60 ml/min/1.73 sqM) Est GFR (CKD-EPI)NonAf >90 (>60 ml/min/1.73 sqM) Glucose 116 H (74-99) mg/dL Calcium 8.9 (8.4-10.2) mg/dL Total Bilirubin 0.4 (0.2-1.3) mg/dL AST 21 (14-36) U/L ALT 29 (9-52) U/L Alkaline Phosphatase 81 (38-126) U/L Total Protein 6.3 (6.3-8.2) g/dL Albumin 3.6 (3.5-5.0) g/dL Urine Color Yellow Urine Appearance Turbid H (Clear) Urine pH 7.0 (5.0-8.0) Ur Specific [place] 1.004 (1.001-1.035) Urine Protein Negative (Negative) Urine Glucose (UA) Negative (Negative) Urine Ketones Negative (Negative) Urine Blood Small H (Negative) Urine Nitrite Negative (Negative) Urine Bilirubin Negative (Negative) Urine Urobilinogen <2.0 (<2.0) mg/dL Ur Leukocyte Esterase Large H (Negative) Urine RBC 9 H (0-5) /hpf Urine WBC 38 H (0-5) /hpf Ur Squamous Epith Cells 1 (0-4) /hpf Amorphous Sediment Rare H (None) /hpf Urine Bacteria Many H (None) /hpf Carbamazepine <3.0 ug/mL Disposition Clinical Impression: Generalized seizure, UTI (urinary tract infection) Disposition: HOME SELF-CARE Condition: Stable Instructions: Urinary Tract Infection in Women (ED), Recurrent Seizures in Adults (ED) Additional Instructions: Please use medication as discussed. Please follow up with family doctor if symptoms have not improved over the next two days. Please return to the emergency room if your symptoms increase or worsen or for any other concerns. Prescriptions: Sulfamethox-Tmp 800-160Mg [Bactrim DS 800-160 mg] 1 each PO Q12HR #14 tab Referrals: [facility],Clinic [Primary Care Provider] - 1-2 days Time of Disposition: 02:33
[2017-06-02 03:01] VITALS: BP 112/69; PULSE 96; RESP 18; TEMP 99.7
== END 2017-06-02 03:04 | disposition home or self-care (01) ==
LOC: EC 01:08
DX: G40.409 Other generalized epilepsy and epileptic syndromes, not intractable, without status epilepticus (principal); N39.0 Urinary tract infection, site not specified; Z79.899 Other long term (current) drug therapy; Z85.42 Personal history of malignant neoplasm of other parts of uterus; Z90.710 Acquired absence of both cervix and uterus
CPT/HCPCS: 36415; 93005; 80156; 80053; 80177; 85025; 81001; 99284; 96374; J2060

== ENCOUNTER → 2017-08-26 | Outpatient (CLI) | payer MEDICARE, OTHER ==
--- NOTE | 2017-08-26 13:04 | US ---
EXAMINATION TYPE: US thyroid st tissue head/neck DATE OF EXAM: 08/26/2017 COMPARISON: 2009 xi no images available CLINICAL HISTORY: E07.89 Other specified disorders of thyroid. GLAND SIZE: Right Lobe: 6.0 x 2.2 x 2.3 cm Overall Parenchyma: heterogenous Left Lobe: 4.6 x 2.2 x 2.3 cm Overall Parenchyma: heterogeneous Isthmus Thickness: 0.5 cm NODULES RIGHT: # of nodules measured on right: 3 1. 2.2 X 1.1 x 1.4 cm isoechoic solid nodule at the lower pole with well-defined margins; . This n odule is wider than tall and shows intranodular vascularity. Prior size: uncertain 2. 1.3 X 1.1 x 0.9 cm echogenic solid nodule at the mid pole with well-defined margins; . This nod ule is wider than tall and shows no intranodular vascularity. Prior size: uncertain 3. 0.8 X 1.0 x 0.7 cm mixed nodule at the upper pole with well-defined margins; . This nodule is ro und and shows intranodular vascularity. Prior size: uncertain LEFT: # of nodules measured on left: 1 1. 2.0 X 1.5 x 1.2 cm echogenic solid nodule at the mid pole with well-defined margins; . This nod ule is wider than tall and shows intranodular vascularity. Prior size: uncertain ISTHMUS: # of nodules measured in the isthmus: 0 Bilateral neck scanned, no evidence of lymphadenopathy. IMPRESSION: Thyromegaly with multinodular thyroid as discussed above. Correlate for thyroiditis.
== END ==
LOC: RADUSWWP 12:14
PROVIDERS: ATTEND Family Medicine
DX: E04.2 Nontoxic multinodular goiter (principal)
CPT/HCPCS: 76536

== ENCOUNTER → 2019-02-09 | Outpatient (CLI) | payer MEDICARE, OTHER ==
[2019-02-09 16:32] LABS: T4, Free (Free Thyroxine) 0.7 ng/dL (0.80-1.80)
== END | disposition home or self-care (01) ==
LOC: LABWHC1 10:38
PROVIDERS: ATTEND Psychiatry & Neurology Neurology
DX: G40.909 Epilepsy, unspecified, not intractable, without status epilepticus (principal)
CPT/HCPCS: 36415; 82947; 84439; 84443

== ENCOUNTER → 2019-02-23 | Outpatient (CLI) | payer MEDICARE, OTHER ==
[2019-02-23 20:21] LABS: T4, Free (Free Thyroxine) 0.9 ng/dL (0.80-1.80)
== END | disposition home or self-care (01) ==
LOC: LABWHC1 14:20
PROVIDERS: ATTEND Psychiatry & Neurology Neurology
DX: G40.909 Epilepsy, unspecified, not intractable, without status epilepticus (principal); E66.3 Overweight
CPT/HCPCS: 36415; 80177; 82947; 84439; 84443